=== PATIENT | female | born 1965 | race Caucasian/White ===

== ENCOUNTER 2017-05-18 09:36 | Emergency (ER) | payer MEDICAID ==
[~2017-05-18] VITALS: Ht 160 cm; Wt 63.7 kg
[~2017-05-18 09:36] MED LIST: CLON-527 PO; CLON-529 PO; CLON0.1T PO; CLON2TAB PO; DOXE50CA4 PO; DOXE75CA3 PO
[2017-05-18 09:49] VITALS: BP 147/107
[2017-05-18] MEDS ORDERED: ONDA4TAB6 PO (10:17)
[2017-05-18] MEDS ORDERED: GABA-532 PO (10:34)
== END 2017-05-18 10:48 | disposition home or self-care (01) ==
LOC: ER 09:38
DX: F10.10 Alcohol abuse, uncomplicated (principal); I10 Essential (primary) hypertension; G89.29 Other chronic pain; M81.0 Age-related osteoporosis without current pathological fracture; F17.200 Nicotine dependence, unspecified, uncomplicated; F15.10 Other stimulant abuse, uncomplicated; Z59.0 Homelessness; Z98.890 Other specified postprocedural states; Z79.899 Other long term (current) drug therapy; Y90.9 Presence of alcohol in blood, level not specified
CPT/HCPCS: 99284

== ENCOUNTER 2017-07-21 07:27 | Inpatient (IN) | payer MEDICAID ==
[~2017-07-21] VITALS: Ht 162.6 cm; Wt 61.4 kg
[~2017-07-21 07:27] MED LIST changes: +GABA-532 PO; +ONDA4TAB6 PO
[2017-07-21] MEDS ORDERED: aspirin 81mg tab.chew PO ONE (07:40)
[2017-07-21] MEDS ORDERED: nitroGLYCERIN 0.2mg/hour patch TD ONE (07:40)
[2017-07-21] MEDS ORDERED: LORazepam 1 MG tablet PO ONE (08:00)
[2017-07-21 08:07] LABS: BASOPHILS % (AUTO) 0.3 % (0-1); EOSINOPHILS # (AUTO) 0.3 X10'3 (0-0.9); EOSINOPHILS % (AUTO) 6.1 % (0-6); HEMATOCRIT 38.5 % (35.0-45.0); HEMOGLOBIN 13.4 g/dl (12.0-16.0); LYMPHOCYTES % (AUTO) 21.8 % (21-51); MEAN CORPUSCULAR HEMOGLOBIN 30.7 PG (27.0-31.0); MEAN CORPUSCULAR HGB CONC 34.9 % (33.0-36.5); MEAN CORPUSCULAR VOLUME 88.1 FL (78-98); MEAN PLATELET VOLUME 7.8 FL (7.4-10.4); MONOCYTES # (AUTO) 0.3 X10'3 (0-0.9); MONOCYTES % (AUTO) 6.2 % (2-12); NEUTROPHILS # (AUTO) 2.9 X10'3 (1.8-7.7); NEUTROPHILS % (AUTO) 65.6 % (42-75); PLATELET COUNT 146 X10'3 (140-440); RED BLOOD COUNT 4.38 X10'6 (4.20-5.60); RED CELL DISTRIBUTION WIDTH 15.5 % (11.5-14.5); WHITE BLOOD COUNT 4.4 X10'3 (4.5-11.0)
[2017-07-21 08:25] LABS: PARTIAL THROMBOPLASTIN TIME 26 SECONDS (22-32); PROTHROMBIN TIME 9.9 SECONDS (9.0-12.0)
[2017-07-21 08:29] LABS: ALANINE AMINOTRANSFERASE 147 U/L (12-78); ALBUMIN 3.4 G/DL (3.4-5.0); ALBUMIN/GLOBULIN RATIO 0.8 (1.1-1.5); ALKALINE PHOSPHATASE 193 IU/L (46-116); ANION GAP 11 (8-16); ASPARTATE AMINO TRANSFERASE 153 U/L (10-37); BILIRUBIN,TOTAL 0.3 MG/DL (0.1-1.0); BLOOD UREA NITROGEN 15 MG/DL (7-18); BUN/CREATININE RATIO 28.3 (6.6-38.0); CALCIUM 8.5 MG/DL (8.5-10.1); CHLORIDE 108 MMOL/L (99-107); CREATINE KINASE 444 U/L (26-192); CREATININE 0.53 MG/DL (0.40-0.90); ETHANOL 0.049 GM/DL (0.0-0.010); GLUCOSE 129 MG/DL (70-104); LIPASE 131 U/L (73-393); MAGNESIUM 1.4 MG/DL (1.5-2.4); POTASSIUM 3.1 MMOL/L (3.5-5.1); SODIUM 146 MMOL/L (135-145); TOTAL PROTEIN 7.7 G/DL (6.4-8.2); eGFR > 90 ML/MIN
[2017-07-21] MEDS ORDERED: magnesium 2GM in 50ml NS 50 ML IV ONE (08:50)
[2017-07-21] MEDS ORDERED: folic acid 1mg tablet PO ONE (08:50)
[2017-07-21] MEDS ORDERED: thiamine 100mg tablet PO ONE (08:50)
[2017-07-21] MEDS ORDERED: normal saline 1000ML IV soln IVB ONE ×2 (08:50→10:20)
[2017-07-21] MEDS ORDERED: magnesium oxide 400mg tablet PO ONE (08:50)
[2017-07-21] MEDS ORDERED: potassium 10mEq/100ml NS w/LIDOcaine (10mg/bag) IV ONE (08:50)
[2017-07-21] MEDS ORDERED: LISI10TA4 PO (09:01)
[2017-07-21 09:15] LABS: CLARITY,URINE CLOUDY (Clear); COLOR,URINE YELLOW (Yellow); GLUCOSE, URINE NEGATIVE (Neg); KETONES,URINE NEGATIVE (Neg); LEUKOCYTE ESTERASE ,URINE LARGE (Neg); NITRITES, URINE POSITIVE (Neg); OCCULT BLOOD,URINE SMALL (Neg); PH,URINE 5.5 (4.8-8.0); PROTEIN,URINE TRACE mg/dl (Neg)
[2017-07-21 09:16] LABS: UA COLLECTION TYPE CLN CATCH MIDSTREAM
[2017-07-21 09:26] LABS: URINE AMPHETAMINE SCREEN POSITIVE (Neg); URINE BARBITUATE SCREEN NEGATIVE (Neg); URINE BENZODIAZEPINES SCREEN NEGATIVE (Neg); URINE CANNABINOID SCREEN POSITIVE (Neg); URINE COCAINE SCREEN NEGATIVE (Neg); URINE METHADONE SCREEN NEGATIVE (Neg); URINE OPIATE SCREEN NEGATIVE (Neg); URINE PHENCYCLIDINE SCREEN NEGATIVE (Neg)
[2017-07-21 09:33] LABS: BACTERIA,URINE 4+ /HPF (Neg); SQUAMOUS EPITHELIAL CELL,UR MODERATE /LPF (FEW); WBC,URINE TNTC /HPF (0-4)
[2017-07-21] MEDS ORDERED: lisinopril 10 MG tablet PO ONE (09:50)
[2017-07-21] MEDS ORDERED: ketorolac tromethamine 15mg/ml inj. IV ONE (10:20)
[2017-07-21 11:07] LABS: CREATINE KINASE 400 U/L (26-192)
[2017-07-21] MEDS ORDERED: morphine 4 MG/ML inj SYRINge IV ONE (11:30)
[2017-07-21] MEDS ORDERED: magnesium hydroxide 30ml (MOM) UD suspension PO PRN (12:40)
[2017-07-21] MEDS ORDERED: ondansetron/PF 4mg/2ml inj IV PRN (12:40)
[2017-07-21] MEDS ORDERED: magnesium 4gm in 100ml NS 100 ML IV PRN (12:40)
[2017-07-21] MEDS ORDERED: magnesium Cl slow-release 64mg tablet PO PRN (12:40)
[2017-07-21] MEDS ORDERED: potassium Cl 20 mEq SR tablet PO PRN ×2 (12:40)
[2017-07-21] MEDS ORDERED: bisacodyl 10mg suppository rectal RC PRN (12:40)
[2017-07-21] MEDS ORDERED: morphine 4 MG/ML inj SYRINge IV PRN (12:40)
[2017-07-21] MEDS ORDERED: HYDROcodone/acetaminophen 10/325mg tab PO PRN (12:40)
[2017-07-21] MEDS ORDERED: potassium Cl 40MEQ/NS 500ml 500 ML IV PRN ×2 (12:40)
[2017-07-21] MEDS ORDERED: magnesium 2GM in 50ml NS 50 ML IV PRN (12:40)
[2017-07-21] MEDS ORDERED: acetaminophen 325mg tablet PO PRN (12:40)
[2017-07-21] MEDS ORDERED: mag hydrox/Alum hydrox/simeth 30ml oral suspension PO PRN (12:40)
[2017-07-21] MEDS ORDERED: nitroGLYCERIN 0.4mg SUBLingual tab SL PRN ×2 (12:50)
[2017-07-21] MEDS ORDERED: metoprolol tartrate 1mg/ml inj IV PRN (12:50)
[2017-07-21] MEDS ORDERED: aminophylline 250mg/10ml inj. IV PRN (12:50)
[2017-07-21] MEDS ORDERED: regadenoson 0.4mg/5ml syringe IV ONE (12:50)
[2017-07-21] MEDS: metoprolol tartrate 25mg tablet PO SCH ×2 (13:24→20:30)
[2017-07-21] MEDS: cefTRIAXone 1g/NS 100ml IVPB 100 ML IV SCH (13:24)
[2017-07-21] MEDS: potassium cl 20mEq in 1/2 NS 1,000 ML IV SCH (13:24)
[2017-07-21] MEDS: pantoprazole 40 MG vial IV SCH ×2 (13:24→20:29)
[2017-07-21] MEDS: LIDOcaine 5% patch TP SCH (13:25)
[2017-07-21] MEDS ORDERED: ondansetron 4mg rapidly disintigrating tab PO PRN (13:30)
[2017-07-21] MEDS ORDERED: regadenoson 0.4mg/5ml syringe IV PRN (13:50)
[2017-07-21] MEDS: LORazepam 1 MG tablet PO PRN (14:15)
[2017-07-21] MEDS ORDERED: CLON0.5T4 (15:30)
[2017-07-21] MEDS ORDERED: ALBU18HF2 (15:30)
[2017-07-21] MEDS: morphine 4 MG/ML inj SYRINge IV PRN (16:05)
[2017-07-21 18:00] VITALS: BP 132/87
[2017-07-21] MEDS: LORazepam 2 mg/ml vial IV PRN ×2 (18:38→23:57)
[2017-07-21 20:00] VITALS: BP_SYST 130; BP_SYST 134; BP_SYST 138; BP_DIAS 79; BP_DIAS 82; BP_DIAS 85
[2017-07-21] MEDS: docusate sod 100mg capsule PO SCH (20:30)
[2017-07-21] MEDS: doxepin 25mg capsule PO SCH (20:30)
[2017-07-21 20:52] VITALS: BP 124/79
[2017-07-22] VITALS (11 sets, daily range): BP systolic 136–165; BP diastolic 5–119
[2017-07-22] MEDS: morphine 4 MG/ML inj SYRINge IV PRN ×2 (00:23→07:28)
[2017-07-22] MEDS: LORazepam 2 mg/ml vial IV PRN (02:46)
[2017-07-22] MEDS: potassium cl 20mEq in 1/2 NS 1,000 ML IV SCH ×2 (04:13→17:16)
[2017-07-22 05:20] LABS: BASOPHILS % (AUTO) 0.4 % (0-1); EOSINOPHILS # (AUTO) 0.4 X10'3 (0-0.9); EOSINOPHILS % (AUTO) 10.5 % (0-6); HEMATOCRIT 33.6 % (35.0-45.0); HEMOGLOBIN 11.6 g/dl (12.0-16.0); LYMPHOCYTES # (AUTO) 1.1 X10'3 (1.1-4.8); LYMPHOCYTES % (AUTO) 27.7 % (21-51); MEAN CORPUSCULAR HEMOGLOBIN 30.4 PG (27.0-31.0); MEAN CORPUSCULAR HGB CONC 34.4 % (33.0-36.5); MEAN CORPUSCULAR VOLUME 88.4 FL (78-98); MEAN PLATELET VOLUME 8.6 FL (7.4-10.4); MONOCYTES # (AUTO) 0.4 X10'3 (0-0.9); MONOCYTES % (AUTO) 8.6 % (2-12); NEUTROPHILS # (AUTO) 2.2 X10'3 (1.8-7.7); NEUTROPHILS % (AUTO) 52.8 % (42-75); PLATELET COUNT 129 X10'3 (140-440); RED BLOOD COUNT 3.79 X10'6 (4.20-5.60); RED CELL DISTRIBUTION WIDTH 15.8 % (11.5-14.5); WHITE BLOOD COUNT 4.1 X10'3 (4.5-11.0)
[2017-07-22 05:38] LABS: ALANINE AMINOTRANSFERASE 104 U/L (12-78); ALBUMIN 2.8 G/DL (3.4-5.0); ALBUMIN/GLOBULIN RATIO 0.8 (1.1-1.5); ALKALINE PHOSPHATASE 166 IU/L (46-116); ANION GAP 8 (8-16); ASPARTATE AMINO TRANSFERASE 96 U/L (10-37); BILIRUBIN,TOTAL 0.4 MG/DL (0.1-1.0); BLOOD UREA NITROGEN 13 MG/DL (7-18); CALCIUM 8.3 MG/DL (8.5-10.1); CHLORIDE 106 MMOL/L (99-107); CHOLESTEROL 120 MG/DL (0-200); CREATININE 0.62 MG/DL (0.40-0.90); GLUCOSE 103 MG/DL (70-104); HDL CHOLESTEROL 61 MG/DL (35-60); LDL CHOLESTEROL 51 MG/DL (50-100); MAGNESIUM 1.7 MG/DL (1.5-2.4); POTASSIUM 3.9 MMOL/L (3.5-5.1); SODIUM 140 MMOL/L (135-145); TOTAL CARBON DIOXIDE 26.2 MMOL/L (24-32); TOTAL PROTEIN 6.4 G/DL (6.4-8.2); TRIGLYCERIDES 65 MG/DL (20-135); eGFR > 90 ML/MIN
[2017-07-22] MEDS: LIDOcaine 5% patch TP SCH (07:20)
[2017-07-22] MEDS: metoprolol tartrate 25mg tablet PO SCH ×2 (07:21→20:44)
[2017-07-22] MEDS: thiamine 100mg tablet PO SCH (07:21)
[2017-07-22] MEDS: cefTRIAXone 1g/NS 100ml IVPB 100 ML IV SCH (07:21)
[2017-07-22] MEDS: pantoprazole 40 MG vial IV SCH ×2 (07:21→20:46)
[2017-07-22] MEDS ORDERED: regadenoson 0.4mg/5ml syringe IV PRN (08:00)
[2017-07-22] MEDS ORDERED: lisinopril 10 MG tablet PO SCH (08:00)
[2017-07-22] MEDS: enoxaparin 40mg/0.4ml syringe SUBCUT SCH (08:00)
[2017-07-22] MEDS: aspirin 81mg tablet.DR PO SCH (08:00)
[2017-07-22] MEDS ORDERED: K and/or MAG REPLACEMENT MC SCH (08:00)
[2017-07-22] MEDS ORDERED: folic acid inj. 2 MG, MVI, adult No.4 with vit. K 10 ML in dextrose 5% water 500ml 500 ML IV SCH ×3 (08:00)
[2017-07-22] MEDS: docusate sod 100mg capsule PO SCH ×2 (08:00→20:00)
[2017-07-22] MEDS ORDERED: aminophylline inj. 0 ML IV ONE (11:24)
[2017-07-22] MEDS ORDERED: regadenoson 0.4mg/5ml syringe IV ONE (11:25)
[2017-07-22] MEDS: HYDROcodone/acetaminophen 5mg/325mg tablet PO PRN ×3 (14:19→23:41)
[2017-07-22] MEDS: LORazepam 1 MG tablet PO PRN ×2 (16:42→20:43)
[2017-07-22] MEDS: isosorbide mononitrate 30mg tab.SR.24H PO SCH (20:42)
[2017-07-22] MEDS: lactobacillus rhamnosus 10,000 MMU CELLS/CAPSULE PO SCH (20:45)
[2017-07-22] MEDS: doxepin 25mg capsule PO SCH (20:45)
[2017-07-23] VITALS: BP 112/62
[2017-07-23 05:15] LABS: BASOPHILS % (AUTO) 0.5 % (0-1); EOSINOPHILS # (AUTO) 0.3 X10'3 (0-0.9); EOSINOPHILS % (AUTO) 10.2 % (0-6); HEMATOCRIT 32.6 % (35.0-45.0); HEMOGLOBIN 11.2 g/dl (12.0-16.0); LYMPHOCYTES # (AUTO) 0.8 X10'3 (1.1-4.8); LYMPHOCYTES % (AUTO) 30.3 % (21-51); MEAN CORPUSCULAR HEMOGLOBIN 30.6 PG (27.0-31.0); MEAN CORPUSCULAR HGB CONC 34.4 % (33.0-36.5); MEAN CORPUSCULAR VOLUME 88.9 FL (78-98); MEAN PLATELET VOLUME 8.7 FL (7.4-10.4); MONOCYTES # (AUTO) 0.2 X10'3 (0-0.9); MONOCYTES % (AUTO) 8.3 % (2-12); NEUTROPHILS # (AUTO) 1.4 X10'3 (1.8-7.7); NEUTROPHILS % (AUTO) 50.7 % (42-75); PLATELET COUNT 108 X10'3 (140-440); RED BLOOD COUNT 3.67 X10'6 (4.20-5.60); RED CELL DISTRIBUTION WIDTH 15.8 % (11.5-14.5); WHITE BLOOD COUNT 2.8 X10'3 (4.5-11.0)
[2017-07-23 05:25] LABS: ALANINE AMINOTRANSFERASE 91 U/L (12-78); ALBUMIN 2.5 G/DL (3.4-5.0); ALBUMIN/GLOBULIN RATIO 0.7 (1.1-1.5); ALKALINE PHOSPHATASE 175 IU/L (46-116); ANION GAP 8 (8-16); ASPARTATE AMINO TRANSFERASE 95 U/L (10-37); BILIRUBIN,TOTAL 0.4 MG/DL (0.1-1.0); BLOOD UREA NITROGEN 14 MG/DL (7-18); BUN/CREATININE RATIO 23.3 (6.6-38.0); CHLORIDE 107 MMOL/L (99-107); GLUCOSE 91 MG/DL (70-104); MAGNESIUM 1.5 MG/DL (1.5-2.4); PHOSPHORUS 4.3 MG/DL (2.3-4.5); POTASSIUM 4.2 MMOL/L (3.5-5.1); SODIUM 141 MMOL/L (135-145); TOTAL CARBON DIOXIDE 26.2 MMOL/L (24-32); TOTAL PROTEIN 6.2 G/DL (6.4-8.2); eGFR > 90 ML/MIN
[2017-07-23 07:00] VITALS: BP 140/99
[2017-07-23 07:07] LABS: TOTAL CELLS COUNTED 100
[2017-07-23 07:08] LABS: ANISOCYTOSIS 1+; PLATELET ESTIMATE DECREASED
[2017-07-23 08:00] VITALS: BP_SYST 145; BP_SYST 155; BP_DIAS 105; BP_DIAS 99
[2017-07-23] MEDS ORDERED: multivitamins, therapeutics tablet PO SCH (08:00)
[2017-07-23] MEDS ORDERED: lisinopril 5mg tablet PO SCH (08:00)
[2017-07-23] MEDS ORDERED: folic acid 1mg tablet PO SCH (08:00)
[2017-07-23] MEDS: metoprolol tartrate 25mg tablet PO SCH (08:20)
[2017-07-23] MEDS: isosorbide mononitrate 30mg tab.SR.24H PO SCH (08:21)
[2017-07-23] MEDS: morphine 4 MG/ML inj SYRINge IV PRN ×2 (08:21→12:12)
[2017-07-23] MEDS: pantoprazole 40 MG vial IV SCH (08:21)
[2017-07-23] MEDS: docusate sod 100mg capsule PO SCH (08:22)
[2017-07-23] MEDS: thiamine 100mg tablet PO SCH (08:22)
[2017-07-23] MEDS: aspirin 81mg tablet.DR PO SCH (08:22)
[2017-07-23] MEDS: lactobacillus rhamnosus 10,000 MMU CELLS/CAPSULE PO SCH (08:22)
[2017-07-23] MEDS: enoxaparin 40mg/0.4ml syringe SUBCUT SCH (08:22)
[2017-07-23] MEDS: cefTRIAXone 1g/NS 100ml IVPB 100 ML IV SCH (08:23)
[2017-07-23] MEDS: LIDOcaine 5% patch TP SCH (08:23)
[2017-07-23] MEDS: HYDROcodone/acetaminophen 5mg/325mg tablet PO PRN (08:44)
[2017-07-23] MEDS: LORazepam 1 MG tablet PO PRN (10:00)
[2017-07-23 11:00] VITALS: BP 145/97
[2017-07-23] MEDS ORDERED: levoFLOXACIN 500mg tablet PO SCH (12:00)
[2017-07-23] MEDS ORDERED: LEVO500T89 PO (12:15)
[2017-07-23] MEDS ORDERED: FOLI1TAB16 PO (12:15)
[2017-07-23] MEDS ORDERED: ASPI-1071 PO (12:15)
[2017-07-23] MEDS ORDERED: IBUP-1984 PO (12:15)
[2017-07-23] MEDS ORDERED: ISOS30TA6 PO (12:15)
[2017-07-23] MEDS ORDERED: THI100T PO (12:15)
[2017-07-23] MEDS ORDERED: METO25TA6 PO (12:15)
[2017-07-23] MEDS ORDERED: OMEP20TA23 PO (12:15)
== END 2017-07-23 15:10 | disposition home or self-care (01) | DRG 463 ==
LOC: ER 07:27 → ED HOLD 12:20 → SUR 3N 17:41
PROVIDERS: ADMIT Internal Medicine; ATTEND Internal Medicine
PROC: 4A02XM4 Measurement of Cardiac Total Activity, External Approach (ICD-10-PCS; principal; 2017-07-22)
PROC: 3E073KZ Introduction of Other Diagnostic Substance into Coronary Artery, Percutaneous Approach (ICD-10-PCS; 2017-07-22)
DX: N39.0 Urinary tract infection, site not specified (principal); K70.10 Alcoholic hepatitis without ascites; E83.42 Hypomagnesemia; M94.0 Chondrocostal junction syndrome [Tietze]; I10 Essential (primary) hypertension; F15.10 Other stimulant abuse, uncomplicated; F10.10 Alcohol abuse, uncomplicated; E87.6 Hypokalemia; F41.8 Other specified anxiety disorders; K29.20 Alcoholic gastritis without bleeding; B96.20 Unspecified Escherichia coli [E. coli] as the cause of diseases classified elsewhere; F20.9 Schizophrenia, unspecified; F41.9 Anxiety disorder, unspecified; F60.3 Borderline personality disorder; G89.4 Chronic pain syndrome; M81.0 Age-related osteoporosis without current pathological fracture; F15.90 Other stimulant use, unspecified, uncomplicated; B19.20 Unspecified viral hepatitis C without hepatic coma; Z86.19 Personal history of other infectious and parasitic diseases; Z76.5 Malingerer [conscious simulation]; Z79.899 Other long term (current) drug therapy; Z86.14 Personal history of Methicillin resistant Staphylococcus aureus infection; Z59.0 Homelessness; Z71.41 Alcohol abuse counseling and surveillance of alcoholic
CPT/HCPCS: 36415; 71045; 78452; 80053; 80061; 80305; 80320; 81001; 82550; 82948; 83690; 83735; 83874; 83880; 84100; 84484; 85025; 85610; 85730; 87040; 87070; 87077; 87088; 87186; 93005; 93017; 93306; 96361; 96365; 96375; 97116; 97162; 97530; 99285; A9500; C9113; J0280; J0696; J1650; J1885; J2060; J2270; J3411; J3475; J3480; J3490; J7030; J7060

== ENCOUNTER 2018-12-10 17:12 | Emergency (ER) | payer MEDICAID ==
[~2018-12-10] VITALS: Ht 162.6 cm; Wt 63.0 kg
[~2018-12-10 17:12] MED LIST changes: +ALBU18HF2; +ASPI-1071 PO; -CLON-527 PO; -CLON-529 PO; -CLON0.1T PO; +CLON0.5T12; -CLON2TAB PO; -DOXE50CA4 PO; +FOLI1TAB16 PO; -GABA-532 PO; +ISOS30TA6 PO; +LEVO500T89 PO; +LISI10TA4 PO; +METO25TA6 PO; +OMEP20TA23 PO; -ONDA4TAB6 PO; +THI100T PO
[2018-12-10] MEDS ORDERED: thiamine 100mg tablet PO ONE (17:45)
[2018-12-10] MEDS ORDERED: normal saline 1000ML IV soln IVB ONE ×2 (17:45→20:15)
[2018-12-10 18:04] LABS: BASOPHILS # (AUTO) 0.1 X10'3 (0-0.2); BASOPHILS % (AUTO) 0.7 % (0-1); EOSINOPHILS # (AUTO) 0.4 X10'3 (0-0.9); EOSINOPHILS % (AUTO) 5.2 % (0-6); HEMATOCRIT 39.4 % (35.0-45.0); HEMOGLOBIN 13.5 g/dl (12.0-16.0); LYMPHOCYTES % (AUTO) 38.8 % (21-51); MEAN CORPUSCULAR HEMOGLOBIN 31.2 PG (27.0-31.0); MEAN CORPUSCULAR HGB CONC 34.2 g/dL (33.0-36.5); MEAN CORPUSCULAR VOLUME 91.3 FL (78-98); MEAN PLATELET VOLUME 8.7 FL (7.4-10.4); MONOCYTES % (AUTO) 13.4 % (2-12); NEUTROPHILS # (AUTO) 3.2 X10'3 (1.8-7.7); NEUTROPHILS % (AUTO) 41.9 % (42-75); PLATELET COUNT 199 X10'3 (140-440); RED BLOOD COUNT 4.32 X10'6 (4.20-5.60); RED CELL DISTRIBUTION WIDTH 14.1 % (11.5-14.5); WHITE BLOOD COUNT 7.7 X10'3 (4.5-11.0)
[2018-12-10 18:13] LABS: ALANINE AMINOTRANSFERASE 51 U/L (12-78); ALBUMIN 3.2 G/DL (3.4-5.0); ALBUMIN/GLOBULIN RATIO 0.8 (1.1-1.5); ALKALINE PHOSPHATASE 121 IU/L (46-116); ANION GAP 15 (8-16); ASPARTATE AMINO TRANSFERASE 52 U/L (10-37); BILIRUBIN,TOTAL 0.3 MG/DL (0.1-1.0); BLOOD UREA NITROGEN 22 MG/DL (7-18); BUN/CREATININE RATIO 19.8 (6.6-38.0); CALCIUM 8.5 MG/DL (8.5-10.1); CHLORIDE 105 MMOL/L (99-107); CREATININE 1.11 MG/DL (0.40-0.90); GLUCOSE 101 MG/DL (70-104); LIPASE 204 U/L (73-393); MAGNESIUM 2.2 MG/DL (1.5-2.4); POTASSIUM 3.1 MMOL/L (3.5-5.1); SODIUM 143 MMOL/L (135-145); TOTAL PROTEIN 7.3 G/DL (6.4-8.2); eGFR 51 ML/MIN
[2018-12-10] MEDS ORDERED: potassium chloride 10mEq CAPSULE.SA PO STA (18:17)
[2018-12-10 18:20] VITALS: BP 104/59
[2018-12-10 18:22] LABS: ETHANOL 0.414 GM/DL (0.0-0.010)
[2018-12-10] MEDS ORDERED: potassium Cl 20 mEq SR tablet PO STA (18:27)
[2018-12-10 19:36] LABS: CLARITY,URINE CLEAR (Clear); COLOR,URINE YELLOW (Yellow); GLUCOSE, URINE NEGATIVE (Neg); KETONES,URINE NEGATIVE (Neg); LEUKOCYTE ESTERASE ,URINE NEGATIVE (Neg); NITRITES, URINE NEGATIVE (Neg); OCCULT BLOOD,URINE NEGATIVE (Neg); PROTEIN,URINE NEGATIVE (Neg)
[2018-12-10 19:39] LABS: URINE HCG NEGATIVE (NEG)
[2018-12-10 19:41] LABS: UA COLLECTION TYPE CLN CATCH MIDSTREAM
[2018-12-10 19:43] LABS: URINE AMPHETAMINE SCREEN NEGATIVE (Neg); URINE BARBITUATE SCREEN NEGATIVE (Neg); URINE BENZODIAZEPINES SCREEN NEGATIVE (Neg); URINE CANNABINOID SCREEN NEGATIVE (Neg); URINE COCAINE SCREEN NEGATIVE (Neg); URINE METHADONE SCREEN NEGATIVE (Neg); URINE OPIATE SCREEN NEGATIVE (Neg); URINE PHENCYCLIDINE SCREEN NEGATIVE (Neg)
== END 2018-12-10 21:28 | disposition home or self-care (01) ==
LOC: ER 17:12
DX: F10.929 Alcohol use, unspecified with intoxication, unspecified (principal); R00.0 Tachycardia, unspecified; R47.81 Slurred speech; G89.29 Other chronic pain; I10 Essential (primary) hypertension; F32.9 Major depressive disorder, single episode, unspecified; F41.9 Anxiety disorder, unspecified; F20.9 Schizophrenia, unspecified; F15.90 Other stimulant use, unspecified, uncomplicated; M81.0 Age-related osteoporosis without current pathological fracture; Z79.2 Long term (current) use of antibiotics; Z79.82 Long term (current) use of aspirin; Z79.899 Other long term (current) drug therapy; Z86.19 Personal history of other infectious and parasitic diseases; Z86.69 Personal history of other diseases of the nervous system and sense organs; Z86.14 Personal history of Methicillin resistant Staphylococcus aureus infection; Z98.890 Other specified postprocedural states; Z60.2 Problems related to living alone; Z59.0 Homelessness; Y90.9 Presence of alcohol in blood, level not specified
CPT/HCPCS: 36415; 80053; 80305; 80320; 81003; 81025; 83690; 83735; 85025; 99284; J7030

== ENCOUNTER 2018-12-15 12:18 | Emergency (ER) | payer MEDICAID ==
[~2018-12-15] VITALS: Ht 152.4 cm; Wt 72.0 kg
[2018-12-15 12:23] VITALS: BP 171/114
[2018-12-15] MEDS ORDERED: SALI10LI TOP (12:43)
== END 2018-12-15 13:00 | disposition home or self-care (01) ==
LOC: ER 12:18
DX: B07.0 Plantar wart (principal); I10 Essential (primary) hypertension; G89.29 Other chronic pain; F15.90 Other stimulant use, unspecified, uncomplicated; Z59.0 Homelessness; Z98.890 Other specified postprocedural states; Z79.899 Other long term (current) drug therapy; Z79.82 Long term (current) use of aspirin
CPT/HCPCS: 99283

== ENCOUNTER 2018-12-19 06:52 | Emergency (ER) | payer MEDICAID ==
[~2018-12-19] VITALS: Ht 152.4 cm; Wt 70.4 kg
[~2018-12-19 06:52] MED LIST changes: +SALI10LI TOP
[2018-12-19] MEDS ORDERED: morphine 4 MG/ML inj SYRINge IV PRN (07:25)
[2018-12-19] MEDS ORDERED: ondansetron/PF 4mg/2ml inj IV ONE (07:25)
[2018-12-19] MEDS ORDERED: normal saline 1000ML IV soln IVB ONE (07:25)
[2018-12-19 07:45] LABS: CLARITY,URINE CLEAR (Clear); COLOR,URINE YELLOW (Yellow); GLUCOSE, URINE NEGATIVE (Neg); KETONES,URINE NEGATIVE (Neg); LEUKOCYTE ESTERASE ,URINE SMALL (Neg); NITRITES, URINE NEGATIVE (Neg); OCCULT BLOOD,URINE SMALL (Neg); PH,URINE 6.5 (4.8-8.0); PROTEIN,URINE NEGATIVE (Neg); UROBILINOGEN,URINE 0.2 E.U/dL (0.2-1.0)
[2018-12-19 07:46] LABS: URINE HCG NEGATIVE (NEG)
[2018-12-19 07:57] LABS: UA COLLECTION TYPE CLN CATCH MIDSTREAM
[2018-12-19 08:17] LABS: BACTERIA,URINE FEW /HPF (Neg); MUCUS STRANDS FEW /LPF (Neg); RBC,URINE 0-2 /HPF (0-2); SQUAMOUS EPITHELIAL CELL,UR FEW /LPF (FEW); WBC,URINE 0-4 /HPF (0-4)
[2018-12-19 08:27] LABS: BASOPHILS % (AUTO) 0.1 % (0-1); EOSINOPHILS # (AUTO) 0.1 X10'3 (0-0.9); EOSINOPHILS % (AUTO) 1.9 % (0-6); HEMATOCRIT 38.2 % (35.0-45.0); HEMOGLOBIN 13.1 g/dl (12.0-16.0); LYMPHOCYTES % (AUTO) 18.6 % (21-51); MEAN CORPUSCULAR HEMOGLOBIN 31.3 PG (27.0-31.0); MEAN CORPUSCULAR HGB CONC 34.3 g/dL (33.0-36.5); MEAN CORPUSCULAR VOLUME 91.4 FL (78-98); MEAN PLATELET VOLUME 8.3 FL (7.4-10.4); MONOCYTES # (AUTO) 0.6 X10'3 (0-0.9); MONOCYTES % (AUTO) 10.5 % (2-12); NEUTROPHILS # (AUTO) 3.8 X10'3 (1.8-7.7); NEUTROPHILS % (AUTO) 68.9 % (42-75); PLATELET COUNT 146 X10'3 (140-440); RED BLOOD COUNT 4.18 X10'6 (4.20-5.60); RED CELL DISTRIBUTION WIDTH 15.4 % (11.5-14.5); WHITE BLOOD COUNT 5.6 X10'3 (4.5-11.0)
[2018-12-19 08:39] LABS: ALANINE AMINOTRANSFERASE 37 U/L (12-78); ALBUMIN 3.5 G/DL (3.4-5.0); ALBUMIN/GLOBULIN RATIO 0.9 (1.1-1.5); ALKALINE PHOSPHATASE 107 IU/L (46-116); ANION GAP 8 (8-16); ASPARTATE AMINO TRANSFERASE 41 U/L (10-37); BILIRUBIN,TOTAL 0.7 MG/DL (0.1-1.0); BLOOD UREA NITROGEN 5 MG/DL (7-18); BUN/CREATININE RATIO 8.6 (6.6-38.0); CALCIUM 8.7 MG/DL (8.5-10.1); CHLORIDE 99 MMOL/L (99-107); CREATININE 0.58 MG/DL (0.40-0.90); GLUCOSE 95 MG/DL (70-104); LIPASE 91 U/L (73-393); POTASSIUM 3.3 MMOL/L (3.5-5.1); SODIUM 133 MMOL/L (135-145); TOTAL CARBON DIOXIDE 26.1 MMOL/L (24-32); TOTAL PROTEIN 7.2 G/DL (6.4-8.2); eGFR > 90 ML/MIN
[2018-12-19] MEDS ORDERED: sucralfate 1gm/10ml UD suspension PO ONE (08:40)
[2018-12-19] MEDS ORDERED: pantoprazole 40mg Tablet.DR PO ONE (08:40)
[2018-12-19] MEDS ORDERED: PANT-47 PO (08:42)
[2018-12-19] MEDS ORDERED: SUCR1TAB34 PO (08:42)
[2018-12-19 09:05] VITALS: BP 126/83
== END 2018-12-19 09:06 | disposition home or self-care (01) ==
LOC: ER 06:53
DX: R12 Heartburn (principal); R10.10 Upper abdominal pain, unspecified; K21.9 Gastro-esophageal reflux disease without esophagitis; I10 Essential (primary) hypertension; G89.29 Other chronic pain; F41.9 Anxiety disorder, unspecified; F20.9 Schizophrenia, unspecified; F32.9 Major depressive disorder, single episode, unspecified; M81.0 Age-related osteoporosis without current pathological fracture; F15.90 Other stimulant use, unspecified, uncomplicated; Z86.14 Personal history of Methicillin resistant Staphylococcus aureus infection; Z59.0 Homelessness; Z86.19 Personal history of other infectious and parasitic diseases; Z86.69 Personal history of other diseases of the nervous system and sense organs; Z79.899 Other long term (current) drug therapy; Z79.82 Long term (current) use of aspirin; Z79.2 Long term (current) use of antibiotics; Z60.2 Problems related to living alone; Z98.890 Other specified postprocedural states
CPT/HCPCS: 36415; 80053; 81001; 81025; 83690; 85025; 87088; 99283

== ENCOUNTER 2018-12-19 10:46 | Emergency (ER) | payer MEDICAID ==
[~2018-12-19] VITALS: Ht 152.4 cm; Wt 68.2 kg
[~2018-12-19 10:46] MED LIST changes: +PANT-47 PO; +SUCR1TAB34 PO
[2018-12-19 12:51] LABS: BASOPHILS % (AUTO) 0.6 % (0-1); EOSINOPHILS # (AUTO) 0.1 X10'3 (0-0.9); EOSINOPHILS % (AUTO) 2.3 % (0-6); HEMATOCRIT 36.7 % (35.0-45.0); HEMOGLOBIN 12.6 g/dl (12.0-16.0); LYMPHOCYTES # (AUTO) 1.4 X10'3 (1.1-4.8); LYMPHOCYTES % (AUTO) 23.1 % (21-51); MEAN CORPUSCULAR HEMOGLOBIN 31.6 PG (27.0-31.0); MEAN CORPUSCULAR HGB CONC 34.2 g/dL (33.0-36.5); MEAN CORPUSCULAR VOLUME 92.5 FL (78-98); MEAN PLATELET VOLUME 8.1 FL (7.4-10.4); MONOCYTES # (AUTO) 0.5 X10'3 (0-0.9); MONOCYTES % (AUTO) 8.9 % (2-12); NEUTROPHILS # (AUTO) 3.9 X10'3 (1.8-7.7); NEUTROPHILS % (AUTO) 65.1 % (42-75); PLATELET COUNT 152 X10'3 (140-440); RED BLOOD COUNT 3.97 X10'6 (4.20-5.60); RED CELL DISTRIBUTION WIDTH 15.3 % (11.5-14.5)
[2018-12-19] MEDS ORDERED: famotidine 20mg tablet PO ONE (13:05)
[2018-12-19] MEDS ORDERED: mag hydrox/Alum hydrox/simeth 30ml oral suspension PO ONE (13:05)
[2018-12-19] MEDS ORDERED: LIDOcaine Viscous 15ml cup PO ONE (13:05)
[2018-12-19 13:09] LABS: ALANINE AMINOTRANSFERASE 38 U/L (12-78); ALBUMIN 3.5 G/DL (3.4-5.0); ALKALINE PHOSPHATASE 102 IU/L (46-116); ANION GAP 12 (8-16); ASPARTATE AMINO TRANSFERASE 36 U/L (10-37); BILIRUBIN,TOTAL 0.6 MG/DL (0.1-1.0); BLOOD UREA NITROGEN 5 MG/DL (7-18); BUN/CREATININE RATIO 8.6 (6.6-38.0); CALCIUM 8.7 MG/DL (8.5-10.1); CHLORIDE 96 MMOL/L (99-107); CREATININE 0.58 MG/DL (0.40-0.90); GLUCOSE 90 MG/DL (70-104); POTASSIUM 3.5 MMOL/L (3.5-5.1); SODIUM 131 MMOL/L (135-145); TOTAL CARBON DIOXIDE 23.2 MMOL/L (24-32); TOTAL PROTEIN 7.1 G/DL (6.4-8.2); eGFR > 90 ML/MIN
[2018-12-19 13:24] LABS: ETHANOL < 0.010 GM/DL (0.0-0.010); MAGNESIUM 1.4 MG/DL (1.5-2.4)
[2018-12-19] MEDS ORDERED: ketorolac trometh. 30mg/ml inj. IV ONE (13:40)
[2018-12-19 14:08] VITALS: BP 123/84
== END 2018-12-19 14:10 | disposition home or self-care (01) ==
LOC: ER 10:47
DX: K29.20 Alcoholic gastritis without bleeding (principal); K21.9 Gastro-esophageal reflux disease without esophagitis; R07.2 Precordial pain; I10 Essential (primary) hypertension; G89.29 Other chronic pain; M81.0 Age-related osteoporosis without current pathological fracture; F41.9 Anxiety disorder, unspecified; F32.9 Major depressive disorder, single episode, unspecified; F20.9 Schizophrenia, unspecified; F17.200 Nicotine dependence, unspecified, uncomplicated; F15.90 Other stimulant use, unspecified, uncomplicated; Z60.2 Problems related to living alone; Z59.0 Homelessness; Z86.19 Personal history of other infectious and parasitic diseases; Z79.2 Long term (current) use of antibiotics; Z79.82 Long term (current) use of aspirin; Z79.899 Other long term (current) drug therapy; Z98.890 Other specified postprocedural states; Z86.14 Personal history of Methicillin resistant Staphylococcus aureus infection; Z86.69 Personal history of other diseases of the nervous system and sense organs
CPT/HCPCS: 36415; 71045; 80053; 80320; 83735; 83880; 84484; 85025; 93005; 99284

== ENCOUNTER 2019-01-21 11:45 | Emergency (ER) | payer MEDICAID ==
[~2019-01-21] VITALS: Ht 152.4 cm; Wt 70.0 kg
--- NOTE | 2019-01-21 12:10 | NUR ---
Dr. Morales made aware about the patient.
--- NOTE | 2019-01-21 12:18 | NUR ---
teressa Espino spoke to Frank(see triage notes)incident # [id number].
[2019-01-21] MEDS ORDERED: HYDROcodone/acetaminophen 5mg/325mg tablet PO ONE (12:25)
[2019-01-21] MEDS ORDERED: HYDR-4383 PO (13:50)
[2019-01-21] MEDS ORDERED: CHLO25CA10 PO (13:50)
[2019-01-21] MEDS ORDERED: LIDO700A32 TP (13:50)
[2019-01-21 14:11] VITALS: BP 129/90
== END 2019-01-21 14:14 | disposition home or self-care (01) ==
LOC: ER 11:46
DX: S22.42XA Multiple fractures of ribs, left side, initial encounter for closed fracture (principal); S30.1XXA Contusion of abdominal wall, initial encounter; I10 Essential (primary) hypertension; G89.29 Other chronic pain; M81.0 Age-related osteoporosis without current pathological fracture; F17.200 Nicotine dependence, unspecified, uncomplicated; F10.10 Alcohol abuse, uncomplicated; Z59.0 Homelessness; Z98.890 Other specified postprocedural states; Z79.82 Long term (current) use of aspirin; Z79.899 Other long term (current) drug therapy; W18.30XA Fall on same level, unspecified, initial encounter; Y93.89 Activity, other specified; Y92.89 Other specified places as the place of occurrence of the external cause; Y99.9 Unspecified external cause status; Y90.9 Presence of alcohol in blood, level not specified
CPT/HCPCS: 71100; 93005; 99283

== ENCOUNTER 2019-01-23 15:15 | Emergency (ER) | payer MEDICAID ==
[~2019-01-23] VITALS: Ht 152.4 cm; Wt 64.0 kg
[~2019-01-23 15:15] MED LIST changes: +CHLO25CA10 PO; +HYDR-4383 PO; +LIDO700A32 TP
[2019-01-23] MEDS ORDERED: ipratropium/albuterol 3ml nebule NEB ONE (15:30)
[2019-01-23] MEDS ORDERED: HYDROcodone/acetaminophen 10/325mg tab PO ONE (15:30)
[2019-01-23] MEDS ORDERED: LORazepam 1 MG tablet PO ONE (16:15)
--- NOTE | 2019-01-23 16:18 | NUR ---
PATIENT STATES HER LAST DRINK OF ALCOHOL WAS YESTERDAY AT 4:30 PATIENT STATES THAT SHE "HAD CONVULSIONS LAST NIGHT"
--- NOTE | 2019-01-23 16:19 | NUR ---
FRIEND MERLINE AND ERNESTINE [phone] FRIENDS
[2019-01-23 16:40] VITALS: BP 103/63
== END 2019-01-23 16:35 | disposition home or self-care (01) ==
LOC: ER 15:15
DX: S22.42XA Multiple fractures of ribs, left side, initial encounter for closed fracture (principal); J98.01 Acute bronchospasm; F10.20 Alcohol dependence, uncomplicated; Y90.9 Presence of alcohol in blood, level not specified; I10 Essential (primary) hypertension; G89.29 Other chronic pain; M81.0 Age-related osteoporosis without current pathological fracture; F41.9 Anxiety disorder, unspecified; F32.9 Major depressive disorder, single episode, unspecified; F20.9 Schizophrenia, unspecified; Z86.69 Personal history of other diseases of the nervous system and sense organs; Z86.14 Personal history of Methicillin resistant Staphylococcus aureus infection; Z98.890 Other specified postprocedural states; Z60.2 Problems related to living alone; Z59.0 Homelessness; Z79.82 Long term (current) use of aspirin; Z79.899 Other long term (current) drug therapy; X58.XXXA Exposure to other specified factors, initial encounter; Y93.89 Activity, other specified; Y92.89 Other specified places as the place of occurrence of the external cause; Y99.8 Other external cause status
CPT/HCPCS: 71045; 94640; 94760; 99284

== ENCOUNTER 2019-01-23 21:47 | Emergency (ER) | payer MEDICAID ==
[~2019-01-23] VITALS: Ht 172.7 cm; Wt 68.2 kg
[2019-01-23 21:51] VITALS: BP 127/94
[2019-01-23] MEDS ORDERED: chlordiazePOXIDE 25mg capsule PO ONE (22:35)
== END 2019-01-23 22:49 | disposition home or self-care (01) ==
LOC: ER 21:58
DX: S22.42XA Multiple fractures of ribs, left side, initial encounter for closed fracture (principal); F10.230 Alcohol dependence with withdrawal, uncomplicated; I10 Essential (primary) hypertension; G89.29 Other chronic pain; M54.9 Dorsalgia, unspecified; M81.0 Age-related osteoporosis without current pathological fracture; F41.9 Anxiety disorder, unspecified; F32.9 Major depressive disorder, single episode, unspecified; F20.9 Schizophrenia, unspecified; Z59.0 Homelessness; Z79.82 Long term (current) use of aspirin; Z79.899 Other long term (current) drug therapy; X58.XXXA Exposure to other specified factors, initial encounter; Y93.89 Activity, other specified; Y92.89 Other specified places as the place of occurrence of the external cause; Y99.8 Other external cause status
CPT/HCPCS: 99282

== ENCOUNTER 2019-02-03 11:12 | Emergency (ER) | payer MEDICAID ==
[~2019-02-03] VITALS: Ht 152.4 cm; Wt 68.0 kg
[2019-02-03 11:15] VITALS: BP 136/95
--- NOTE | 2019-02-03 13:10 | NUR ---
CALLED PT IN LOBBY AT 1255 NOT IN LOBBY. RECALLED FOR PT IN LOBBY AND OUTSIDE AT 1305 PT NOT IN LOBBY OR OUTSIDE.
== END 2019-02-03 14:10 | disposition left against medical advice (07) ==
LOC: ER 11:13
DX: M54.9 Dorsalgia, unspecified (principal); Z53.21 Procedure and treatment not carried out due to patient leaving prior to being seen by health care provider

== ENCOUNTER 2019-02-04 13:40 | Emergency (ER) | payer MEDICAID ==
[~2019-02-04] VITALS: Ht 152.4 cm; Wt 68.6 kg
[2019-02-04 14:05] VITALS: BP 150/116
[2019-02-04] MEDS ORDERED: orphenadrine citrate 60mg/2ml inj. IM ONE (15:10)
[2019-02-04] MEDS ORDERED: ketorolac tromethamine 15mg/ml inj. IM ONE (15:10)
[2019-02-04] MEDS ORDERED: HYDROcodone/acetaminophen 5mg/325mg tablet PO ONE (16:50)
== END 2019-02-04 17:27 | disposition home or self-care (01) ==
LOC: ER 13:41
DX: S32.028A Other fracture of second lumbar vertebra, initial encounter for closed fracture (principal); S32.038A Other fracture of third lumbar vertebra, initial encounter for closed fracture; S20.211A Contusion of right front wall of thorax, initial encounter; I10 Essential (primary) hypertension; G89.29 Other chronic pain; F41.9 Anxiety disorder, unspecified; F32.9 Major depressive disorder, single episode, unspecified; F20.9 Schizophrenia, unspecified; Z79.82 Long term (current) use of aspirin; Z86.14 Personal history of Methicillin resistant Staphylococcus aureus infection; Z79.2 Long term (current) use of antibiotics; Z79.899 Other long term (current) drug therapy; Z98.890 Other specified postprocedural states; Z59.0 Homelessness; W01.0XXA Fall on same level from slipping, tripping and stumbling without subsequent striking against object, initial encounter; Y93.01 Activity, walking, marching and hiking; Y92.89 Other specified places as the place of occurrence of the external cause; Y99.8 Other external cause status
CPT/HCPCS: 71101; 72080; 96372; 99284; J1885; J2360

== ENCOUNTER 2019-02-15 11:27 | Emergency (ER) | payer MEDICAID ==
[~2019-02-15] VITALS: Ht 152.4 cm; Wt 68.2 kg
[~2019-02-15 11:27] MED LIST changes: -CLON0.5T12; +CLON0.5T4
[2019-02-15] MEDS ORDERED: ACYC5CRE2 TP (12:38)
[2019-02-15] MEDS ORDERED: ACYC-202 PO (12:38)
[2019-02-15 13:04] VITALS: BP 125/95
== END 2019-02-15 13:06 | disposition home or self-care (01) ==
LOC: ER 11:28
DX: B00.1 Herpesviral vesicular dermatitis (principal); Z76.0 Encounter for issue of repeat prescription; I10 Essential (primary) hypertension; G89.29 Other chronic pain; F17.200 Nicotine dependence, unspecified, uncomplicated; Z59.0 Homelessness; Z98.890 Other specified postprocedural states; Z86.14 Personal history of Methicillin resistant Staphylococcus aureus infection; Z79.82 Long term (current) use of aspirin; Z79.899 Other long term (current) drug therapy
CPT/HCPCS: 99283

== ENCOUNTER 2019-03-01 13:24 | Emergency (ER) | payer MEDICAID ==
[~2019-03-01] VITALS: Ht 152.4 cm; Wt 69.5 kg
[~2019-03-01 13:24] MED LIST changes: +ACYC-202 PO; +CLON0.5T12; -CLON0.5T4
[2019-03-01] MEDS ORDERED: ketorolac trometh. 30mg/ml inj. IM ONE (14:35)
[2019-03-01 14:43] VITALS: BP 90/55
--- NOTE | 2019-03-01 14:44 | NUR ---
PT ARRIVES WITH A TORSO BACK BRACE. STATES SHE FELL AND HAS A BROKEN BACK.
--- NOTE | 2019-03-01 14:52 | NUR ---
PT IS TRYING TO MAKE A CALL ON HER PHONE AND THEN ASKS FOR HELP FROM THE NURSE. THE NURSE WAS NOT ABLE TO MAKE THE CALL FOR HER AND GAVE THE PHONE BACK TO THE PT. THE PT TRIED AGAIN TO MAKE A CALL AND THEN THREW THE PHONE ACROSS THE ROOM. THE PHONE HIT THE TILE FLOOR AND BROKE INTO PIECES. PT IS ASKING TO GO HOME. REQUESTING THE HOSPITAL TO PAY FOR A TAXI TO TAKE HER HOME. NOTIFY THE PROVIDER WHO WILL GO IN TO SEE HER AFTER SHE GETS ALL THE MEDICAL INFO FROM HER DOCTORS.
--- NOTE | 2019-03-01 15:00 | NUR ---
PT STANDING AT THE DOOR IN ROOM 1 ASKING FOR A PHONE. PT IS GIVEN A PHONE AND SHE DOES MAKE A CALL HOME. PT COMES DOWN TO THE NURSING STATION ASKING FOR A TAXI RIDE HOME. NOTIFY DR PATEL.
--- NOTE | 2019-03-01 15:15 | NUR ---
PT IS NOT IN HER ROOM AND HAS WALKED OUTSIDE TOWARD THE BUS STOP. NOTIFY MD THAT PT HAS WALKED OUT.
--- NOTE | 2019-03-01 15:29 | NUR ---
NOTIFY [facility] FOR A WELFARE CHECK.
== END 2019-03-01 15:32 | disposition left against medical advice (07) ==
LOC: ER 13:24
DX: F10.920 Alcohol use, unspecified with intoxication, uncomplicated (principal); M54.5 Low back pain; G89.29 Other chronic pain; I10 Essential (primary) hypertension; F41.9 Anxiety disorder, unspecified; F32.9 Major depressive disorder, single episode, unspecified; F20.9 Schizophrenia, unspecified; M81.0 Age-related osteoporosis without current pathological fracture; F17.200 Nicotine dependence, unspecified, uncomplicated; Z86.19 Personal history of other infectious and parasitic diseases; Z86.14 Personal history of Methicillin resistant Staphylococcus aureus infection; Z86.69 Personal history of other diseases of the nervous system and sense organs; Z60.2 Problems related to living alone; Z59.0 Homelessness; Z98.890 Other specified postprocedural states; Z79.82 Long term (current) use of aspirin; Z79.899 Other long term (current) drug therapy; Y90.9 Presence of alcohol in blood, level not specified
CPT/HCPCS: 96372; 99284; J1885

== ENCOUNTER 2019-03-03 12:13 | Emergency (ER) | payer MEDICAID ==
[~2019-03-03] VITALS: Ht 152.4 cm; Wt 70.0 kg
[2019-03-03 12:21] VITALS: BP 123/85
[2019-03-03] MEDS ORDERED: ketorolac trometh inj. 60 MG/2 ML VIAL IM ONE ×2 (13:45→14:50)
[2019-03-03] MEDS ORDERED: cyclobenzaprine 10mg tablet PO ONE (13:45)
[2019-03-03] MEDS ORDERED: ketorolac trometh. 30mg/ml inj. IM ONE (14:55)
== END 2019-03-03 15:02 | disposition home or self-care (01) ==
LOC: ER 12:13
DX: G89.29 Other chronic pain (principal); M54.6 Pain in thoracic spine; M54.5 Low back pain; I10 Essential (primary) hypertension; M81.0 Age-related osteoporosis without current pathological fracture; F41.9 Anxiety disorder, unspecified; F32.9 Major depressive disorder, single episode, unspecified; F20.9 Schizophrenia, unspecified; Z86.14 Personal history of Methicillin resistant Staphylococcus aureus infection; Z98.890 Other specified postprocedural states; Z59.0 Homelessness; Z79.2 Long term (current) use of antibiotics; Z79.82 Long term (current) use of aspirin; Z79.899 Other long term (current) drug therapy
CPT/HCPCS: 96372; 99284; J1885

== ENCOUNTER 2019-03-06 14:36 | Emergency (ER) | payer MEDICAID ==
[~2019-03-06] VITALS: Ht 154.9 cm; Wt 80.0 kg
[~2019-03-06 14:36] MED LIST changes: -CLON0.5T12; +CLON0.5T4
[2019-03-06 14:41] VITALS: BP 112/91
[2019-03-06 15:16] LABS: URINE HCG NEGATIVE (NEG)
[2019-03-06 15:19] LABS: CLARITY,URINE SLIGHTLY CLOUDY (Clear); COLOR,URINE YELLOW (Yellow); GLUCOSE, URINE NEGATIVE (Neg); KETONES,URINE NEGATIVE (Neg); LEUKOCYTE ESTERASE ,URINE MODERATE (Neg); NITRITES, URINE POSITIVE (Neg); OCCULT BLOOD,URINE NEGATIVE (Neg); PROTEIN,URINE NEGATIVE (Neg); UROBILINOGEN,URINE 0.2 E.U/dL (0.2-1.0)
[2019-03-06 15:21] LABS: UA COLLECTION TYPE CLN CATCH MIDSTREAM
[2019-03-06 15:26] LABS: WBC,URINE 50-100 /HPF (0-4)
[2019-03-06 15:28] LABS: RBC,URINE 0-2 /HPF (0-2)
[2019-03-06 15:29] LABS: BACTERIA,URINE 4+ /HPF (Neg); SQUAMOUS EPITHELIAL CELL,UR FEW /LPF (FEW)
[2019-03-06] MEDS ORDERED: LORazepam 2 mg/ml vial IM ONE (15:45)
[2019-03-06] MEDS ORDERED: ketorolac tromethamine 15mg/ml inj. IM ONE (15:45)
[2019-03-07] MEDS ORDERED: CHLO25CA10 PO (12:13)
--- NOTE | 2019-03-10 13:45 | NUR ---
CALLED LEFT A MESSAGE FOR PT. TO CALL SO WHERE WE CAN CALL IN A SCRIP FOR KEFLEX 500MG PO BID X 7 DAYS
== END 2019-03-06 16:27 | disposition home or self-care (01) ==
LOC: ER 14:37
DX: M54.5 Low back pain (principal); G89.29 Other chronic pain; F10.920 Alcohol use, unspecified with intoxication, uncomplicated; I10 Essential (primary) hypertension; F41.9 Anxiety disorder, unspecified; F32.9 Major depressive disorder, single episode, unspecified; M81.0 Age-related osteoporosis without current pathological fracture; Z86.19 Personal history of other infectious and parasitic diseases; Z86.14 Personal history of Methicillin resistant Staphylococcus aureus infection; Z60.2 Problems related to living alone; Z59.0 Homelessness; Z79.82 Long term (current) use of aspirin; Z79.899 Other long term (current) drug therapy; Y90.9 Presence of alcohol in blood, level not specified
CPT/HCPCS: 81001; 81025; 87077; 87088; 87186; 96372; 99283; J1885; J2060

== ENCOUNTER 2019-03-07 09:05 | Emergency (ER) | payer MEDICAID ==
[~2019-03-07] VITALS: Ht 152.4 cm; Wt 68.0 kg
[2019-03-07] MEDS ORDERED: LORazepam 2 mg/ml vial IM ONE (09:30)
[2019-03-07 11:33] VITALS: BP 117/32
[2019-03-07] MEDS ORDERED: ketorolac trometh inj. 60 MG/2 ML VIAL IM ONE (11:50)
[2019-03-07] MEDS ORDERED: CHLO25CA10 PO (12:13)
--- NOTE | 2019-03-17 09:15 | NUR ---
after 3 attempts to call pt. and get an rx for them, with no response. i sent a letter. informed pt. that she needed to be rechecked since it has been mor then a week. pt. needed keflex 500mg po bid for 7 days. since it has been more then a week it is recomended to have urine retested.
== END 2019-03-07 12:32 | disposition home or self-care (01) ==
LOC: ER 09:06
DX: M54.5 Low back pain (principal); G89.29 Other chronic pain; F10.10 Alcohol abuse, uncomplicated; I10 Essential (primary) hypertension; F41.9 Anxiety disorder, unspecified; F32.9 Major depressive disorder, single episode, unspecified; F20.9 Schizophrenia, unspecified; F17.200 Nicotine dependence, unspecified, uncomplicated; F15.90 Other stimulant use, unspecified, uncomplicated; M81.0 Age-related osteoporosis without current pathological fracture; Z86.19 Personal history of other infectious and parasitic diseases; Z86.14 Personal history of Methicillin resistant Staphylococcus aureus infection; Z98.890 Other specified postprocedural states; Z60.2 Problems related to living alone; Z59.0 Homelessness; Z86.69 Personal history of other diseases of the nervous system and sense organs; Z79.82 Long term (current) use of aspirin; Z79.899 Other long term (current) drug therapy; Y90.9 Presence of alcohol in blood, level not specified
CPT/HCPCS: 72148; 96372; 99284; J1885; J2060

== ENCOUNTER 2019-04-16 00:16 | Emergency (ER) | payer MEDICAID ==
[~2019-04-16] VITALS: Ht 152.4 cm; Wt 63.7 kg
[~2019-04-16 00:16] MED LIST changes: -ACYC-202 PO
[2019-04-16 00:17] VITALS: BP 113/92
[2019-04-16] MEDS ORDERED: AZIT-63 PO (02:22)
== END 2019-04-16 02:41 | disposition home or self-care (01) ==
LOC: ER 00:17
DX: R05 Cough (principal); I10 Essential (primary) hypertension; G89.29 Other chronic pain; F41.9 Anxiety disorder, unspecified; F32.9 Major depressive disorder, single episode, unspecified; F20.9 Schizophrenia, unspecified; M81.0 Age-related osteoporosis without current pathological fracture; F10.10 Alcohol abuse, uncomplicated; F15.90 Other stimulant use, unspecified, uncomplicated; F17.200 Nicotine dependence, unspecified, uncomplicated; Z86.19 Personal history of other infectious and parasitic diseases; Z86.69 Personal history of other diseases of the nervous system and sense organs; Z60.2 Problems related to living alone; Z59.0 Homelessness; Z98.890 Other specified postprocedural states; Z79.82 Long term (current) use of aspirin; Z79.899 Other long term (current) drug therapy; Y90.9 Presence of alcohol in blood, level not specified
CPT/HCPCS: 99283

== ENCOUNTER 2019-07-24 14:25 | Emergency (ER) | payer MEDICAID ==
[~2019-07-24] VITALS: Ht 152.4 cm; Wt 64.1 kg
[2019-07-24 15:00] VITALS: BP 117/85
[2019-07-24 16:53] LABS: BASOPHILS % (AUTO) 0.5 % (0-1); EOSINOPHILS # (AUTO) 0.1 X10'3 (0-0.9); EOSINOPHILS % (AUTO) 1.3 % (0-6); HEMATOCRIT 41.5 % (35.0-45.0); HEMOGLOBIN 14.2 g/dl (12.0-16.0); LYMPHOCYTES # (AUTO) 1.2 X10'3 (1.1-4.8); MEAN CORPUSCULAR HEMOGLOBIN 30.2 PG (27.0-31.0); MEAN CORPUSCULAR HGB CONC 34.2 g/dL (33.0-36.5); MEAN CORPUSCULAR VOLUME 88.3 FL (78-98); MEAN PLATELET VOLUME 9.1 FL (7.4-10.4); MONOCYTES # (AUTO) 0.5 X10'3 (0-0.9); MONOCYTES % (AUTO) 8.3 % (2-12); NEUTROPHILS % (AUTO) 68.9 % (42-75); PLATELET COUNT 132 X10'3 (140-440); RED CELL DISTRIBUTION WIDTH 16.4 % (11.5-14.5); WHITE BLOOD COUNT 5.8 X10'3 (4.5-11.0)
[2019-07-24 17:08] LABS: ALANINE AMINOTRANSFERASE 26 U/L (12-78); ALBUMIN 3.2 G/DL (3.4-5.0); ALBUMIN/GLOBULIN RATIO 0.7 (1.1-1.5); ALKALINE PHOSPHATASE 136 IU/L (46-116); ANION GAP 8 (8-16); ASPARTATE AMINO TRANSFERASE 32 U/L (10-37); BILIRUBIN,TOTAL 0.5 MG/DL (0.1-1.0); BLOOD UREA NITROGEN 10 MG/DL (7-18); BUN/CREATININE RATIO 16.1 (6.6-38.0); C-REACTIVE PROTEIN 4.77 MG/DL (0.0-0.5); CALCIUM 8.7 MG/DL (8.5-10.1); CHLORIDE 103 MMOL/L (99-107); CREATININE 0.62 MG/DL (0.40-0.90); GLUCOSE 78 MG/DL (70-104); POTASSIUM 3.6 MMOL/L (3.5-5.1); SODIUM 138 MMOL/L (135-145); TOTAL CARBON DIOXIDE 26.6 MMOL/L (24-32); TOTAL PROTEIN 7.7 G/DL (6.4-8.2); eGFR > 90 ML/MIN
[2019-07-24] MEDS ORDERED: SULF1TAB49 PO (17:09)
[2019-07-24] MEDS ORDERED: CEPH500C5 PO (17:09)
[2019-07-24] MEDS ORDERED: COLC0.6T69 PO (17:12)
[2019-07-24] MEDS ORDERED: cephalexin 250mg capsule PO ONE (18:35)
[2019-07-24] MEDS ORDERED: sulfamethoxazole/trimethoprim DS (800/160mg) tablet PO ONE (18:35)
--- NOTE | 2019-07-26 08:48 | NUR ---
PT CALLED FOR LAB RESULTS, MSG LEFT TO CALL BACK AT [facility].
--- NOTE | 2019-07-26 10:00 | NUR ---
PT RETURNED CALL, STATING THAT SHE IS TAKING HER 2 ABX; KEFLES AND BACTRIM ORDERED AND AFTER 2 DAYS PT IS NOT ANY BETTER. DR ROSARIO CONSULTED AND PT WAS CALLED BACK AND MESSAGE LEFT FOR PT TO RETURN TO THE ER FOR FURTHER EVALUATION SOON POSSIBLE, AND TO CALL TRAVEL OCCUPATIONAL THERAPIST IF SHE HAD ANY QUESTIONS.
== END 2019-07-24 19:12 | disposition home or self-care (01) ==
LOC: ER 14:26
DX: M25.572 Pain in left ankle and joints of left foot (principal); I10 Essential (primary) hypertension; G89.29 Other chronic pain; M81.0 Age-related osteoporosis without current pathological fracture; F41.9 Anxiety disorder, unspecified; F32.9 Major depressive disorder, single episode, unspecified; F20.9 Schizophrenia, unspecified; F15.90 Other stimulant use, unspecified, uncomplicated; Z86.69 Personal history of other diseases of the nervous system and sense organs; Z86.19 Personal history of other infectious and parasitic diseases; Z98.890 Other specified postprocedural states; Z60.2 Problems related to living alone; Z59.0 Homelessness; Z79.82 Long term (current) use of aspirin; Z79.2 Long term (current) use of antibiotics; Z79.899 Other long term (current) drug therapy
CPT/HCPCS: 36415; 73630; 80053; 83605; 84145; 85025; 86140; 87040; 87186; 99284

== ENCOUNTER 2019-07-27 17:18 | Emergency (ER) | payer MEDICAID ==
[~2019-07-27] VITALS: Ht 154.9 cm; Wt 70.0 kg
[~2019-07-27 17:18] MED LIST changes: +CEPH500C5 PO; +COLC0.6T69 PO; +SULF1TAB49 PO
[2019-07-27 18:23] LABS: BASOPHILS % (AUTO) 0.6 % (0-1); EOSINOPHILS # (AUTO) 0.1 X10'3 (0-0.9); EOSINOPHILS % (AUTO) 2.3 % (0-6); HEMATOCRIT 44.3 % (35.0-45.0); HEMOGLOBIN 15.3 g/dl (12.0-16.0); LYMPHOCYTES # (AUTO) 1.3 X10'3 (1.1-4.8); LYMPHOCYTES % (AUTO) 28.3 % (21-51); MEAN CORPUSCULAR HEMOGLOBIN 30.4 PG (27.0-31.0); MEAN CORPUSCULAR HGB CONC 34.5 g/dL (33.0-36.5); MEAN CORPUSCULAR VOLUME 88.4 FL (78-98); MONOCYTES # (AUTO) 0.5 X10'3 (0-0.9); MONOCYTES % (AUTO) 9.6 % (2-12); NEUTROPHILS # (AUTO) 2.8 X10'3 (1.8-7.7); NEUTROPHILS % (AUTO) 59.2 % (42-75); PLATELET COUNT 172 X10'3 (140-440); RED BLOOD COUNT 5.01 X10'6 (4.20-5.60); RED CELL DISTRIBUTION WIDTH 16.2 % (11.5-14.5); WHITE BLOOD COUNT 4.7 X10'3 (4.5-11.0)
[2019-07-27 18:44] LABS: ALANINE AMINOTRANSFERASE 24 U/L (12-78); ALBUMIN 3.3 G/DL (3.4-5.0); ALBUMIN/GLOBULIN RATIO 0.7 (1.1-1.5); ALKALINE PHOSPHATASE 161 IU/L (46-116); ANION GAP 10 (8-16); ASPARTATE AMINO TRANSFERASE 36 U/L (10-37); BILIRUBIN,TOTAL 0.3 MG/DL (0.1-1.0); BLOOD UREA NITROGEN 13 MG/DL (7-18); BUN/CREATININE RATIO 12.1 (6.6-38.0); CALCIUM 9.4 MG/DL (8.5-10.1); CHLORIDE 104 MMOL/L (99-107); CREATININE 1.07 MG/DL (0.40-0.90); GLUCOSE 115 MG/DL (70-104); SODIUM 139 MMOL/L (135-145); TOTAL CARBON DIOXIDE 25.5 MMOL/L (24-32); TOTAL PROTEIN 8.3 G/DL (6.4-8.2); eGFR 53 ML/MIN
[2019-07-27 19:03] LABS: POTASSIUM 4.2 MMOL/L (3.5-5.1)
[2019-07-27] MEDS ORDERED: CefTRIAXone 1000mg IM Kit (w/lidocaine diluent) IM ONE (21:25)
[2019-07-27] MEDS ORDERED: HYDROcodone/acetaminophen 5mg/325mg tablet PO ONE (21:50)
[2019-07-27 22:04] VITALS: BP 136/109
--- NOTE | 2019-07-30 17:41 | NUR ---
PT. HAD POSITIVE BLOOD CULTURE ON 07/24/19, POSS. CONTAMINATED. PT. CAME BACK ON 07/27/19 AND HAD BLOOD CULTURE DRAWN AGAIN. PRELIMINARY REPORT HAS ONE BOTTLE NEGATIVE AND ONE BOTTLE POSITIVE. LABS WERE SHOWN TO DR. PATEL. SHE REVEIWED THE CHART AND WANTED PT. CALLED. IF PT. WAS AFEBRILE AND REDNESS RESOVING AND PT. FELT WELL.... NO ACTION NEEDED. IF PT. HAD A FEVER, INCREASED REDNES OR SICK PT. IS TO RETURN TO ER FOR A RE-CHECK. CALLED AND LEFT A MESSAGE ON JUS'S PHONE.
== END 2019-07-27 22:08 | disposition home or self-care (01) ==
LOC: ER 17:21
DX: L03.116 Cellulitis of left lower limb (principal); I10 Essential (primary) hypertension; G89.29 Other chronic pain; F41.9 Anxiety disorder, unspecified; F20.9 Schizophrenia, unspecified; F32.9 Major depressive disorder, single episode, unspecified; F15.90 Other stimulant use, unspecified, uncomplicated; Z86.69 Personal history of other diseases of the nervous system and sense organs; Z59.0 Homelessness; Z60.2 Problems related to living alone; Z86.19 Personal history of other infectious and parasitic diseases; M81.0 Age-related osteoporosis without current pathological fracture; Z79.82 Long term (current) use of aspirin; Z79.899 Other long term (current) drug therapy
CPT/HCPCS: 36415; 80053; 83605; 85025; 87040; 96372; 99283; J0696

== ENCOUNTER 2019-08-02 16:01 | Emergency (ER) | payer MEDICAID ==
[~2019-08-02] VITALS: Ht 152.4 cm; Wt 61.5 kg
[~2019-08-02 16:01] MED LIST changes: -CEPH500C5 PO; -SULF1TAB49 PO
[2019-08-02] MEDS ORDERED: ketorolac trometh. 30mg/ml inj. IM ONE (17:10)
[2019-08-02] MEDS ORDERED: HYDROcodone/acetaminophen 5mg/325mg tablet PO ONE (17:10)
[2019-08-02] MEDS ORDERED: DOXY100C76 PO (17:14)
--- NOTE | 2019-08-02 17:32 | NUR ---
VITALS RETAKEN REQUESTED BY TALA VILLA. PT REMAINS TACHYCARDIC @ SAME LEVEL SHE ARRIVED. TALA VILLA NOTIFIED. INITIALLY EKG ORDERED, BUT UPON PA'S REVIEW OF PT HX WAS CANCELLED.
[2019-08-02 17:33] VITALS: BP 136/68
== END 2019-08-02 17:36 | disposition home or self-care (01) ==
LOC: ER 16:02
DX: L03.116 Cellulitis of left lower limb (principal); F41.9 Anxiety disorder, unspecified; I10 Essential (primary) hypertension; G89.29 Other chronic pain; F32.9 Major depressive disorder, single episode, unspecified; F15.90 Other stimulant use, unspecified, uncomplicated; F17.200 Nicotine dependence, unspecified, uncomplicated; Z59.0 Homelessness; Z98.890 Other specified postprocedural states; Z86.14 Personal history of Methicillin resistant Staphylococcus aureus infection; Z88.5 Allergy status to narcotic agent; Z79.82 Long term (current) use of aspirin; Z79.2 Long term (current) use of antibiotics
CPT/HCPCS: 96372; 99283; J1885

== ENCOUNTER 2020-08-09 08:38 | Emergency (ER) | payer MEDICAID ==
[~2020-08-09] VITALS: Ht 152.4 cm; Wt 73.6 kg
[~2020-08-09 08:38] MED LIST changes: -ALBU18HF2; +ALBU18HF2 PO; -COLC0.6T69 PO; +COLC0.6T72 PO; -ISOS30TA6 PO; +ISOS30TA84 PO; +LISI10TA27 PO; -LISI10TA4 PO; +LOP25T PO; -METO25TA6 PO
--- NOTE | 2020-08-09 08:50 | NUR ---
pt states has been out of antidepressants for the last week.
[2020-08-09] MEDS ORDERED: normal saline 1000ML IV soln IVB ONE (09:25)
--- NOTE | 2020-08-09 10:13 | NUR ---
pt eating an egg sandwich and grahm crackers.
[2020-08-09 11:07] LABS: BASOPHILS % (AUTO) 0.5 % (0-1); EOSINOPHILS # (AUTO) 0.1 X10'3 (0-0.9); EOSINOPHILS % (AUTO) 3.6 % (0-6); HEMATOCRIT 39.4 % (35.0-45.0); HEMOGLOBIN 12.9 g/dl (12.0-16.0); LYMPHOCYTES # (AUTO) 1.3 X10'3 (1.1-4.8); LYMPHOCYTES % (AUTO) 41.6 % (21-51); MEAN CORPUSCULAR HEMOGLOBIN 30.1 PG (27.0-31.0); MEAN CORPUSCULAR HGB CONC 32.8 g/dL (33.0-36.5); MEAN PLATELET VOLUME 7.7 FL (7.4-10.4); MONOCYTES # (AUTO) 0.2 X10'3 (0-0.9); MONOCYTES % (AUTO) 7.4 % (2-12); NEUTROPHILS # (AUTO) 1.5 X10'3 (1.8-7.7); NEUTROPHILS % (AUTO) 46.9 % (42-75); PLATELET COUNT 159 X10'3 (140-440); RED BLOOD COUNT 4.28 X10'6 (4.20-5.60); WHITE BLOOD COUNT 3.1 X10'3 (4.5-11.0)
[2020-08-09 11:11] LABS: ALANINE AMINOTRANSFERASE 50 U/L (12-78); ALBUMIN 3.6 G/DL (3.4-5.0); ALBUMIN/GLOBULIN RATIO 0.8 (1.1-1.5); ALKALINE PHOSPHATASE 143 IU/L (46-116); ANION GAP 15 (8-16); ASPARTATE AMINO TRANSFERASE 52 U/L (10-37); BILIRUBIN,TOTAL 0.2 MG/DL (0.1-1.0); BLOOD UREA NITROGEN 13 MG/DL (7-18); BUN/CREATININE RATIO 24.5 (6.6-38.0); CALCIUM 7.9 MG/DL (8.5-10.1); CHLORIDE 109 MMOL/L (99-107); CREATININE 0.53 MG/DL (0.40-0.90); GLUCOSE 70 MG/DL (70-104); POTASSIUM 3.8 MMOL/L (3.5-5.1); SODIUM 143 MMOL/L (135-145); TOTAL CARBON DIOXIDE 19.3 MMOL/L (24-32); eGFR > 90 ML/MIN
[2020-08-09 11:40] LABS: ETHANOL 0.157 GM/DL (0.0-0.010)
[2020-08-09 11:53] LABS: CLARITY,URINE CLEAR (Clear); COLOR,URINE YELLOW (Yellow); GLUCOSE, URINE NEGATIVE (Neg); KETONES,URINE NEGATIVE (Neg); LEUKOCYTE ESTERASE ,URINE NEGATIVE (Neg); NITRITES, URINE NEGATIVE (Neg); OCCULT BLOOD,URINE NEGATIVE (Neg); PROTEIN,URINE NEGATIVE (Neg); UROBILINOGEN,URINE 0.2 E.U/dL (0.2-1.0)
[2020-08-09 11:58] LABS: URINE AMPHETAMINE SCREEN NEGATIVE (Neg); URINE BARBITUATE SCREEN NEGATIVE (Neg); URINE BENZODIAZEPINES SCREEN POSITIVE (Neg); URINE CANNABINOID SCREEN NEGATIVE (Neg); URINE COCAINE SCREEN NEGATIVE (Neg); URINE METHADONE SCREEN NEGATIVE (Neg); URINE OPIATE SCREEN NEGATIVE (Neg); URINE PHENCYCLIDINE SCREEN NEGATIVE (Neg)
[2020-08-09 12:01] LABS: UA COLLECTION TYPE STRAIGHT CATH
--- NOTE | 2020-08-09 14:24 | NUR ---
Pt was brought over from main ER via gurney. Pt placed in bed 22. Pt is loud stating "I can't get my shirt on!" Pt is redirectable. Pt presents with slurred speech. Pt is on phone talking to her mother. Will continue to monitor.
--- NOTE | 2020-08-09 14:27 | NUR ---
Above note was written by this keno writer.
--- NOTE | 2020-08-09 14:32 | NUR ---
SW patient, she is requesting Ativan. Will follow up with ER doctor. Pt states she drinks 2 pints of whiskey a day. Pollution Control Chemist asked if she was drinking because she wanted to or because she was addicted "both." "I am suicidal." "Right now I just want to ." Pt requested something to eat and "lots of water," "I need lots of water." Pt denies A/VH or tactile hallucinations, no diaphoresis noted.
[2020-08-09] MEDS ORDERED: IBUP-1985 PO (15:35)
[2020-08-09] MEDS ORDERED: CYCL-1 PO (15:35)
[2020-08-09] MEDS ORDERED: albuterol 2.5 MG/3 ML nebule NEB PRN (16:25)
--- NOTE | 2020-08-09 16:29 | NUR ---
Pt at in bed eating sandwich, calm/cooperative. Prior to this pt had become irritated "if I don't get Ativan I am going to hobble to the store and chug." Pt states she recently was kicked out of the [facility] because she "cussed someone out." "I was sober for eight month's." Pt received a call from Estela Payton (Field Operator [phone]) for [facility]. Pt states "if I get transferred to [facility] they will come pray for me." Pt requested "I need help I have to go to the bathroom." Pt c/o of left knee pain, but when encouraged to ambulate independently pt was able, it was suggested to hold on to the counter if she needed assistance. Pt's gait is steady, pt needed to be reminded to stand up straight. Pt stated she was on Clonazapam 0.5mg BID, however last refill date was 11/2019.
--- NOTE | 2020-08-09 17:49 | NUR ---
Patient ambulated to restroom independently, at first c/o of knee pain "I can't walk." Pt was able to get herself to bathroom and back to her bed. Vitals obtained and pt is now eating dinner.
--- NOTE | 2020-08-09 18:05 | NUR ---
Received phone call from Ish with [facility], she reports that pt was at [facility] on 08/06 for the ETOH and suicidal ideation. Pt was supposed to call her traffic agent at that time to assist with putting pt up in a motel. Pt did not meet criteria, so she was released from [facility]. Will endorse to next shift and CRN.
[2020-08-09] MEDS: cyclobenzaprine 10mg tablet PO SCH (20:08)
[2020-08-09] MEDS: ibuprofen 200mg tablet PO PRN (20:08)
[2020-08-09] MEDS ORDERED: doxepin 25mg capsule PO SCH (21:00)
--- NOTE | 2020-08-09 23:05 | NUR ---
pt is still resting, appearing to be asleep.
--- NOTE | 2020-08-10 | NUR ---
NO CHANGES, STILL ASLEEP
--- NOTE | 2020-08-10 01:00 | NUR ---
nad, Still asleep
--- NOTE | 2020-08-10 02:28 | NUR ---
Remains asleep left side. [id number]
--- NOTE | 2020-08-10 03:40 | NUR ---
PT REMAINS ASLEEP
--- NOTE | 2020-08-10 05:56 | NUR ---
PT STILL ASLEEP
--- NOTE | 2020-08-10 06:30 | NUR ---
Pt sleeping. Respirations unlabored. NAD
--- NOTE | 2020-08-10 07:38 | NUR ---
Pt ambulated to the restroom without difficulty. Pt states that she wants to be , but does not have a plan. Pt states that her last drink was 26 hours ago.
[2020-08-10] MEDS ORDERED: pantoprazole 40mg Tablet.DR PO SCH (08:00)
[2020-08-10] MEDS ORDERED: lisinopril 10 MG tablet PO SCH (08:00)
[2020-08-10] MEDS: cyclobenzaprine 10mg tablet PO SCH (08:47)
--- NOTE | 2020-08-10 10:00 | NUR ---
Pt sleeping. Respirations unlabored. NAD
--- NOTE | 2020-08-10 10:19 | NUR ---
Demi from [facility] in [place] called for a [id number] report. She will present the patient to her doctor and give us a call back.
--- NOTE | 2020-08-10 11:51 | NUR ---
Pt ambulated to the restroom without any difficulty.
--- NOTE | 2020-08-10 11:58 | NUR ---
Pt given water and a Bible to read.
--- NOTE | 2020-08-10 12:43 | NUR ---
Pt given sandwich as she said she was hungry and couldn't wait for lunch to get here.
--- NOTE | 2020-08-10 13:26 | NUR ---
[place] campus office called and said that [facility] [place] is taking the pt. [facility] light truck driver, James, will be here to transport the patient by 1730 at the latest.
[2020-08-10] MEDS: ibuprofen 200mg tablet PO PRN (14:08)
--- NOTE | 2020-08-10 15:37 | NUR ---
Pt's friend Tonia at bedside.
--- NOTE | 2020-08-10 16:44 | NUR ---
Pt resting quietly in bed.
--- NOTE | 2020-08-10 17:22 | NUR ---
Pt given phone to call some friends before she goes to [facility].
[2020-08-10 17:57] VITALS: BP 122/80
== END 2020-08-10 18:01 ==
LOC: ER 08:39
DX: R45.851 Suicidal ideations (principal); Z20.822 Contact with and (suspected) exposure to COVID-19; F10.129 Alcohol abuse with intoxication, unspecified; I10 Essential (primary) hypertension; G89.29 Other chronic pain; F41.9 Anxiety disorder, unspecified; F32.9 Major depressive disorder, single episode, unspecified; F20.9 Schizophrenia, unspecified; F15.90 Other stimulant use, unspecified, uncomplicated; Z86.69 Personal history of other diseases of the nervous system and sense organs; Z86.19 Personal history of other infectious and parasitic diseases; Z86.14 Personal history of Methicillin resistant Staphylococcus aureus infection; Z98.890 Other specified postprocedural states; Z72.9 Problem related to lifestyle, unspecified; Z60.2 Problems related to living alone; Z59.0 Homelessness; Z79.899 Other long term (current) drug therapy
CPT/HCPCS: 36415; 80053; 80305; 80320; 81003; 82948; 85025; 87426; 99285; J7030; 96360

== ENCOUNTER 2020-09-17 10:45 | Emergency (ER) | payer MEDICAID ==
[~2020-09-17] VITALS: Ht 160 cm; Wt 68.2 kg
[~2020-09-17 10:45] MED LIST changes: -ASPI-1071 PO; -CHLO25CA10 PO; -CLON0.5T4; -COLC0.6T72 PO; +CYCL-1 PO; -FOLI1TAB16 PO; -HYDR-4383 PO; +IBUP-1985 PO; -ISOS30TA84 PO; -LEVO500T89 PO; -LIDO700A32 TP; -LOP25T PO; -PANT-47 PO; -SALI10LI TOP; -SUCR1TAB34 PO; -THI100T PO
[2020-09-17] MEDS ORDERED: HYDROcodone/acetaminophen 5mg/325mg tablet PO ONE (13:45)
[2020-09-17 13:57] VITALS: BP 145/55
== END 2020-09-17 13:59 | disposition home or self-care (01) ==
LOC: ER 10:46
DX: G89.29 Other chronic pain (principal); M54.5 Low back pain; I10 Essential (primary) hypertension; F41.9 Anxiety disorder, unspecified; F32.9 Major depressive disorder, single episode, unspecified; F20.9 Schizophrenia, unspecified; F15.90 Other stimulant use, unspecified, uncomplicated; Z72.89 Other problems related to lifestyle; Z86.19 Personal history of other infectious and parasitic diseases; Z86.69 Personal history of other diseases of the nervous system and sense organs; Z98.890 Other specified postprocedural states; Z60.2 Problems related to living alone; Z59.0 Homelessness; Z79.899 Other long term (current) drug therapy
CPT/HCPCS: 72100; 99284

== ENCOUNTER 2020-09-18 14:23 | Emergency (ER) | payer MEDICAID ==
[~2020-09-18] VITALS: Ht 160 cm; Wt 68.0 kg
[2020-09-18 14:33] VITALS: BP 98/66
[2020-09-18] MEDS ORDERED: traMADol 50MG tablet PO ONE (14:35)
== END 2020-09-18 15:00 | disposition home or self-care (01) ==
LOC: ER 14:23
DX: G89.29 Other chronic pain (principal); M54.9 Dorsalgia, unspecified; G43.909 Migraine, unspecified, not intractable, without status migrainosus; I10 Essential (primary) hypertension; M81.0 Age-related osteoporosis without current pathological fracture; F15.90 Other stimulant use, unspecified, uncomplicated; Z86.14 Personal history of Methicillin resistant Staphylococcus aureus infection; Z87.81 Personal history of (healed) traumatic fracture; Z98.890 Other specified postprocedural states; Z79.899 Other long term (current) drug therapy; Z59.0 Homelessness; Z86.19 Personal history of other infectious and parasitic diseases
CPT/HCPCS: 99283

== ENCOUNTER 2020-09-24 20:45 | Emergency (ER) | payer MEDICAID ==
[~2020-09-24] VITALS: Ht 160 cm; Wt 68.2 kg
[2020-09-24 22:23] LABS: HEMATOCRIT 38.6 % (35.0-45.0); HEMOGLOBIN 13.1 g/dl (12.0-16.0); LYMPHOCYTES # (AUTO) 1.8 X10'3 (1.1-4.8); LYMPHOCYTES % (AUTO) 38.9 % (21-51); MEAN CORPUSCULAR HGB CONC 33.8 g/dL (33.0-36.5); WHITE BLOOD COUNT 4.6 X10'3 (4.5-11.0)
[2020-09-24 22:24] LABS: ALANINE AMINOTRANSFERASE 46 U/L (12-78); ALBUMIN 3.5 G/DL (3.4-5.0); ALBUMIN/GLOBULIN RATIO 0.9 (1.1-1.5); ALKALINE PHOSPHATASE 153 IU/L (46-116); ANION GAP 13 (8-16); ASPARTATE AMINO TRANSFERASE 44 U/L (10-37); BILIRUBIN,TOTAL 0.2 MG/DL (0.1-1.0); BLOOD UREA NITROGEN 12 MG/DL (7-18); BUN/CREATININE RATIO 8.9 (6.6-38.0); CALCIUM 9.4 MG/DL (8.5-10.1); CHLORIDE 105 MMOL/L (99-107); CREATININE 1.35 MG/DL (0.40-0.90); GLUCOSE 103 MG/DL (70-104); POTASSIUM 3.6 MMOL/L (3.5-5.1); SODIUM 143 MMOL/L (135-145); TOTAL CARBON DIOXIDE 24.8 MMOL/L (24-32); TOTAL PROTEIN 7.6 G/DL (6.4-8.2); eGFR 40 ML/MIN
[2020-09-24 22:25] LABS: BASOPHILS % (AUTO) 0.7 % (0-1); EOSINOPHILS # (AUTO) 0.1 X10'3 (0-0.9); EOSINOPHILS % (AUTO) 3.2 % (0-6); MEAN CORPUSCULAR HEMOGLOBIN 30.7 PG (27.0-31.0); MEAN CORPUSCULAR VOLUME 90.7 FL (78-98); MEAN PLATELET VOLUME 8.3 FL (7.4-10.4); MONOCYTES # (AUTO) 0.5 X10'3 (0-0.9); MONOCYTES % (AUTO) 10.2 % (2-12); NEUTROPHILS # (AUTO) 2.2 X10'3 (1.8-7.7); PLATELET COUNT 213 X10'3 (140-440); RED BLOOD COUNT 4.26 X10'6 (4.20-5.60); RED CELL DISTRIBUTION WIDTH 15.1 % (11.5-14.5)
[2020-09-24 22:27] LABS: TROPONIN I < 0.04 NG/ML (0.0-0.05)
[2020-09-24] MEDS ORDERED: normal saline 1000ML IV soln IVB ONE (22:35)
[2020-09-24 22:59] LABS: ETHANOL 0.242 GM/DL (0.0-0.010)
[2020-09-25 00:05] LABS: URINE AMPHETAMINE SCREEN NEGATIVE (Neg); URINE BARBITUATE SCREEN NEGATIVE (Neg); URINE BENZODIAZEPINES SCREEN POSITIVE (Neg); URINE CANNABINOID SCREEN NEGATIVE (Neg); URINE COCAINE SCREEN NEGATIVE (Neg); URINE METHADONE SCREEN NEGATIVE (Neg); URINE OPIATE SCREEN NEGATIVE (Neg); URINE PHENCYCLIDINE SCREEN NEGATIVE (Neg)
--- NOTE | 2020-09-25 00:07 | NUR ---
PT SLEEPING SOUNDLY NOW. SHE HAS BEEN RAMBLING, TALKING ABOUT DENOMINATIONAL, DEMANDING PAIN MEDICATIONS. SHE STATES SHE HAS A MOTEL ROOM AT [employer], NO RIDE OR SAFE PERSON. SHE HAS A PEER SUPPORT PERSON, BUT DOES NOT KNOW THEIR PHONE NUMBER, UNABLE TO FIND IN CHART.
[2020-09-25 06:39] LABS: CLARITY,URINE CLEAR (Clear); COLOR,URINE YELLOW (Yellow); GLUCOSE, URINE NEGATIVE (Neg); KETONES,URINE NEGATIVE (Neg); LEUKOCYTE ESTERASE ,URINE TRACE (Neg); NITRITES, URINE NEGATIVE (Neg); OCCULT BLOOD,URINE NEGATIVE (Neg); PH,URINE 6.5 (4.8-8.0); PROTEIN,URINE NEGATIVE (Neg)
[2020-09-25 06:41] LABS: UA COLLECTION TYPE CLN CATCH MIDSTREAM
--- NOTE | 2020-09-25 06:45 | NUR ---
PT UP TO BR WITH SITTER STEADY GAIT. PT DENIES SI AT THIS TIME.
[2020-09-25 06:55] LABS: BACTERIA,URINE FEW /HPF (Neg); RBC,URINE NONE SEEN /HPF (0-2); SQUAMOUS EPITHELIAL CELL,UR NONE SEEN /LPF (FEW); WBC,URINE 0-4 /HPF (0-4)
--- NOTE | 2020-09-25 07:29 | NUR ---
PACKET FAXED TO [facility]
--- NOTE | 2020-09-25 09:21 | NUR ---
PT WAS AWAKE TO EAT BREAKFAST. NOW RESTING WITH EYES CLOSED RR EQUAL AND UNLABORED
--- NOTE | 2020-09-25 10:01 | NUR ---
PT AMBULATED TO BR WITH STEADY GAIT AND NO C/O PAIN
--- NOTE | 2020-09-25 14:51 | NUR ---
pt ambulated without assistance from ed7 to ed22 escorted by GERALDO Bell. Pt is fixated on her back, requesting MRI. EDMD Donaldson reviewed pt chart from 09/17 & 09/18 visits where chronic compression fractures were revealed. Pt seen by KERRY larios and has not been compliant with most recent dc poc instructions. IV pulled.
[2020-09-25] MEDS ORDERED: FAMO20TA8 PO (15:23)
[2020-09-25] MEDS ORDERED: CLON-368 PO (16:08)
[2020-09-25] MEDS ORDERED: NICO-687 TOP (16:12)
[2020-09-25] MEDS: clonazePAM 0.5mg tablet PO PRN (16:38)
[2020-09-25] MEDS: nicotine 21mg patch - 24 hr TD SCH (16:42)
--- NOTE | 2020-09-25 19:35 | NUR ---
One to one with the patient to assess for severity of her depressive symptoms and self harm risk. She was very focused on getting an MRI and wanted to stay focused on wrongs done to her from the medical community regarding her back. She admits she has not followed through to get a PCP. When asked if she was suicidal she reported. "I'm tired of living and drinking and treated like trash because I drink" She reports being an alcoholic since age 11. She denies A/V hallucinations. She denies thoughts to harm others. She is irritable. She makes frequent requests.
[2020-09-25] MEDS: famotidine 20mg tablet PO SCH (20:16)
[2020-09-25] MEDS: ibuprofen 200mg tablet PO SCH (20:17)
[2020-09-25] MEDS: doxepin 25mg capsule PO SCH (20:17)
[2020-09-25] MEDS: chlordiazePOXIDE 25mg capsule PO PRN (20:17)
--- NOTE | 2020-09-25 20:59 | NUR ---
The patient is resting on her bed currently. She did report that she was starting to feel tremulous but tremors not visable to staff at this time. Her HR is 105 and her BP was 130/102. Solo EDGAR made aware and orders received.
--- NOTE | 2020-09-25 23:09 | NUR ---
The patient appearst to be sleeping
--- NOTE | 2020-09-26 00:16 | NUR ---
The patient appears to be sleeping
--- NOTE | 2020-09-26 01:57 | NUR ---
The patient appears to be sleeping
[2020-09-26] MEDS: benzocaine/menthol oral lozeng 1 EACH BOX MM PRN ×4 (02:29→15:43)
--- NOTE | 2020-09-26 02:36 | NUR ---
The patient up to the bathroom and requested cough drop and medication given.
--- NOTE | 2020-09-26 03:28 | NUR ---
PATIENT STATES THAT SHE THINKS SHE HAS BRONCHITIS AND WOULD LIKE TO SEE THE DOCTOR IN THE MORNING. PATIENT INFORMED THAT THE ER DOCTOR USUALLY MAKES MORNING ROUNDS TO CHECK ON THE PATIENTS AND STATES SHE WOULD LIKE TO HAVE THE DOCTOR EXAMINE HER.
--- NOTE | 2020-09-26 03:59 | NUR ---
The patient appears to now be sleeping
--- NOTE | 2020-09-26 04:53 | NUR ---
The patient appears to be sleeping
[2020-09-26] MEDS: chlordiazePOXIDE 25mg capsule PO PRN ×3 (05:35→20:06)
[2020-09-26] MEDS ORDERED: nicotine 21mg patch - 24 hr TD SCH (08:00)
[2020-09-26] MEDS ORDERED: lisinopril 10 MG tablet PO SCH (08:00)
[2020-09-26] MEDS: ibuprofen 200mg tablet PO SCH ×2 (08:44→20:06)
[2020-09-26] MEDS: famotidine 20mg tablet PO SCH ×2 (08:45→20:06)
[2020-09-26] MEDS: nicotine 21mg patch - 24 hr TD SCH (08:46)
--- NOTE | 2020-09-26 13:11 | NUR ---
Patient sitting quietly in bed eating lunch
--- NOTE | 2020-09-26 19:52 | NUR ---
The patient has been resting on her bed. She is very histrionic and manipulative. She is demanding medication and stating "I'm seeing things! I need help!" There is no evidence that she is hearing voices. She has no tremors or other s/s of wd while talking on the phone. She is med seeking for librium. She continues to be focused on getting an MRI. She is interrupting nursing staff to ask to have her needs met as they are interviewing other patients.
[2020-09-26] MEDS: clonazePAM 0.5mg tablet PO PRN (20:06)
[2020-09-26] MEDS: doxepin 25mg capsule PO SCH (20:06)
--- NOTE | 2020-09-26 20:24 | NUR ---
The patient was made aware that she is going to be transferred to [facility] later this evening.
[2020-09-26 21:11] VITALS: BP 124/95
== END 2020-09-26 21:31 ==
LOC: ER 20:46
DX: R45.851 Suicidal ideations (principal); F10.129 Alcohol abuse with intoxication, unspecified; M54.5 Low back pain; I10 Essential (primary) hypertension; G89.29 Other chronic pain; F41.9 Anxiety disorder, unspecified; F32.9 Major depressive disorder, single episode, unspecified; F20.9 Schizophrenia, unspecified; F15.90 Other stimulant use, unspecified, uncomplicated; Z86.69 Personal history of other diseases of the nervous system and sense organs; Z86.19 Personal history of other infectious and parasitic diseases; Z86.14 Personal history of Methicillin resistant Staphylococcus aureus infection; Z98.890 Other specified postprocedural states; Z72.89 Other problems related to lifestyle; Z60.2 Problems related to living alone; Z59.0 Homelessness; Z79.899 Other long term (current) drug therapy; Y90.0 Blood alcohol level of less than 20 mg/100 ml
CPT/HCPCS: 36415; 71045; 80053; 80305; 80320; 81001; 84484; 85025; 93005; 96360; 99285; J7030

== ENCOUNTER 2020-10-20 15:00 | Emergency (ER) | payer MEDICAID ==
[~2020-10-20] VITALS: Ht 152.4 cm; Wt 71.5 kg
[~2020-10-20 15:00] MED LIST changes: -ALBU18HF2 PO; +BENZ1LOZ30 MM; +BUSP5TAB26 PO; -CYCL-1 PO; +DOXE100C21 PO; -DOXE75CA3 PO; +FAMO20TA8 PO; +HYDR50TA65 PO; -LISI10TA27 PO; +NICO-687 TD; -OMEP20TA23 PO
[2020-10-20 15:09] VITALS: BP 147/121
[2020-10-20] MEDS ORDERED: normal saline 1000ML IV soln IVB ONE (15:15)
[2020-10-20 15:38] LABS: BASOPHILS # (AUTO) 0.1 X10'3 (0-0.2); BASOPHILS % (AUTO) 1.4 % (0-1); EOSINOPHILS # (AUTO) 0.3 X10'3 (0-0.9); EOSINOPHILS % (AUTO) 6.3 % (0-6); HEMATOCRIT 38.8 % (35.0-45.0); LYMPHOCYTES # (AUTO) 1.8 X10'3 (1.1-4.8); LYMPHOCYTES % (AUTO) 39.4 % (21-51); MEAN CORPUSCULAR HEMOGLOBIN 30.8 PG (27.0-31.0); MEAN CORPUSCULAR HGB CONC 33.6 g/dL (33.0-36.5); MEAN CORPUSCULAR VOLUME 91.6 FL (78-98); MEAN PLATELET VOLUME 8.1 FL (7.4-10.4); MONOCYTES # (AUTO) 0.4 X10'3 (0-0.9); NEUTROPHILS # (AUTO) 1.9 X10'3 (1.8-7.7); NEUTROPHILS % (AUTO) 42.9 % (42-75); PLATELET COUNT 173 X10'3 (140-440); RED BLOOD COUNT 4.24 X10'6 (4.20-5.60); WHITE BLOOD COUNT 4.5 X10'3 (4.5-11.0)
[2020-10-20 15:47] LABS: ALANINE AMINOTRANSFERASE 98 U/L (12-78); ALBUMIN 3.5 G/DL (3.4-5.0); ALBUMIN/GLOBULIN RATIO 0.9 (1.1-1.5); ALKALINE PHOSPHATASE 167 IU/L (46-116); ANION GAP 8 (8-16); ASPARTATE AMINO TRANSFERASE 85 U/L (10-37); BILIRUBIN,TOTAL 0.3 MG/DL (0.1-1.0); BLOOD UREA NITROGEN 11 MG/DL (7-18); BUN/CREATININE RATIO 12.8 (6.6-38.0); CALCIUM 9.6 MG/DL (8.5-10.1); CHLORIDE 104 MMOL/L (99-107); CREATININE 0.86 MG/DL (0.40-0.90); ETHANOL 0.269 GM/DL (0.0-0.010); GLUCOSE 104 MG/DL (70-104); POTASSIUM 3.4 MMOL/L (3.5-5.1); SODIUM 140 MMOL/L (135-145); TOTAL CARBON DIOXIDE 27.7 MMOL/L (24-32); TOTAL PROTEIN 7.5 G/DL (6.4-8.2); eGFR 68 ML/MIN
== END 2020-10-20 17:40 | disposition home or self-care (01) ==
LOC: ER 15:00
DX: F10.129 Alcohol abuse with intoxication, unspecified (principal); R47.81 Slurred speech; R00.0 Tachycardia, unspecified; I10 Essential (primary) hypertension; G89.29 Other chronic pain; F41.9 Anxiety disorder, unspecified; F32.9 Major depressive disorder, single episode, unspecified; F15.90 Other stimulant use, unspecified, uncomplicated; F20.9 Schizophrenia, unspecified; Z86.69 Personal history of other diseases of the nervous system and sense organs; Z86.19 Personal history of other infectious and parasitic diseases; Z86.14 Personal history of Methicillin resistant Staphylococcus aureus infection; Z98.890 Other specified postprocedural states; Z72.89 Other problems related to lifestyle; Z60.2 Problems related to living alone; Z59.0 Homelessness; Z79.899 Other long term (current) drug therapy; Y90.0 Blood alcohol level of less than 20 mg/100 ml
CPT/HCPCS: 36415; 80053; 80320; 85025; 99283